=== PATIENT | female | born 1975 | race Two or more races ===

== ENCOUNTER → 2020-05-31 | Outpatient (CLI) | payer OTHER ==
--- NOTE | 2020-05-31 09:17 | RAD ---
EXAM: Abdomen sonogram. HISTORY: Periumbilical pain.. TECHNIQUE: Sonographic imaging of the abdomen was performed. COMPARISON: None. FINDINGS: There is a fat-containing periumbilical hernia at the site of palpable concern. The hernia defect measures 2.7 cm in maximum dimension during a Valsalva maneuver. IMPRESSION: Small fat-containing periumbilical hernia. Electronically signed by: Chante Desouza MD (05/31/2020 9:14 AM) [id number]
== END | disposition home or self-care (01) ==
LOC: US 06:35
PROVIDERS: ATTEND Family Medicine
DX: K42.9 Umbilical hernia without obstruction or gangrene (principal); R19.00 Intra-abdominal and pelvic swelling, mass and lump, unspecified site
CPT/HCPCS: 76705

== ENCOUNTER 2021-06-10 03:21 | Inpatient (IN) | payer SELFPAY ==
[~2021-06-10] VITALS: Ht 160 cm; Wt 88.4 kg
--- NOTE | 2021-06-10 03:52 | PHYS DOC ---
Past Medical History Past Medical History: Diabetes-Type II Additional Past Medical Histor: ARTHRITIS (KEIRA MCMAHON MD) Past Surgical History: No Surgical History (KEIRA MCMAHON MD) Smoking Status: Former Smoker (KEIRA MCMAHON MD) General Adult EDM: Chief Complaint: Periumbilical abdominal pain HPI: HPI: 46-year-old woman presents to the ER complaining of periumbilical abdominal pain over the past 3 days, patient endorses an aching cramping sensation that has come and gone but is now constant, nonradiating, associated with some nausea vo miting but no diarrhea, no fevers or chills, she has not have any prior surgical history or history of kidney stones, has a history of diabetes, no chest pain or shortness of breath, no urinary symptoms or blood in the stool (KEIRA MCMAHON MD) Review of Systems: Review of Systems: Constitutional: Denies fever or chills. [] Eyes: Denies change in visual acuity. [] HENT: Denies nasal congestion or sore throat. [] Respiratory: Denies cough or shortness of breath. [] Cardiovascular: Denies chest pain or edema. [] GI: + abdominal pain, nausea, vomiting, bloody stools or diarrhea. [] : Denies dysuria. [] Musculoskeletal: Denies back pain or joint pain. [] Integument: Denies rash. [] Neurologic: Denies headache, focal weakness or sensory changes. [] Endocrine: Denies polyuria or polydipsia. [] Lymphatic: Denies swollen glands. [] Psychiatric: Denies depression or anxiety. [] (KEIRA MCMAHON MD) Heart Score: C/O Chest Pain: No Risk Factors: Risk Factors: DM, Current or recent (<one month) smoker, HTN, HLP, family history of CAD, obesity. Risk Scores: Score 0 - 3: 2.5% MACE over next 6 weeks - Discharge Home Score 4 - 6: 20.3% MACE over next 6 weeks - Admit for Clinical Observation Score 7 - 10: 72.7% MACE over next 6 weeks - Early Invasive Strategies (KEIRA MCMAHON MD) C/O Chest Pain: N/A (DAVID DICK DO) Allergies: Allergies: Allergies Coded Allergies Type Severity Reaction Last Updated Verified No Known Drug Allergies 06/10/21 No (KEIRA MCMAHON MD) Physical Exam: PE: Gen-well appearing, no acute distress Head: Normocephalic/Atraumatic ENT: atraumatic, PERRLA, EOMI, oropharynx clear Neck: supple, full ROM/strength, no JVD, no nuchal rigidity Lungs: no distress, speaks in full sentences, Clear to auscultation bilaterally CV: reg rate, rhythm, no murmus/rubs/gallops, peripheral pulses equal in all ext remities Abdomen: soft and tender around the periumbilical region but no tenderness at McBurney's point, negative Fiore sign, o guarding/rebound tenderness, no rigidity, non distended, normoactive bowel sounds Musculoskeletal: full ROM/strength in all extremities, atraumatic, no swelling Back: full range of motion/strength Skin: intact, no rashes Lymph: no gross YURIDIA Neuro: alert and oriented x 4, CN 2-12 grossly intact, Motor strength is 5/5 in all extremities, no focal sensory deficits, no focal ataxia, ambulatory with steady gait Psych: normal mood/affect (KEIRA MCMAHON MD) Current Patient Data: Vital Signs: Vital Signs Date Time Temp Pulse Resp B/P (MAP) Pulse Ox O2 Delivery O2 Flow Rate FiO2 06/10/21 03:26 98.6 77 25 156/86 98 Room Air 98.6 (KEIRA MCMAHON MD) Labs: Laboratory Tests Test 06/10/21 03:54 06/10/21 04:45 White Blood Count 13.5 x10^3/uL Red Blood Count 4.76 x10^6/uL Hemoglobin 13.9 g/dL Hematocrit 40.8 % Mean Corpuscular Volume 86 fL Mean Corpuscular Hemoglobin 29 pg Mean Corpuscular Hemoglobin Concent 34 g/dL Red Cell Distribution Width 13.3 % Platelet Count 243 x10^3/uL Neutrophils (%) (Auto) 83 % Lymphocytes (%) (Auto) 13 % Monocytes (%) (Auto) 3 % Eosinophils (%) (Auto) 1 % Basophils (%) (Auto) 0 % Neutrophils # (Auto) 11.2 x10^3/uL Lymphocytes # (Auto) 1.7 x10^3/uL Monocytes # (Auto) 0.4 x10^3/uL Eosinophils # (Auto) 0.2 x10^3/uL Basophils # (Auto) 0.0 x10^3/uL Sodium Level 138 mmol/L Potassium Level 3.6 mmol/L Chloride Level 103 mmol/L Carbon Dioxide Level 29 mmol/L Anion Gap 6 Blood Urea Nitrogen 7 mg/dL Creatinine 0.6 mg/dL Estimated GFR (Cockcroft-Gault) 108.1 BUN/Creatinine Ratio 12 Glucose Level 159 mg/dL Calcium Level 8.7 mg/dL Total Bilirubin 0.5 mg/dL Aspartate Amino Transf (AST/SGOT) 18 U/L Alanine Aminotransferase (ALT/SGPT) 30 U/L Alkaline Phosphatase 59 U/L Total Protein 7.0 g/dL Albumin 3.4 g/dL Albumin/Globulin Ratio 0.9 Lipase 61 U/L Urine Collection Type Void Urine Color Yellow Urine Clarity Turbid Urine pH 8.0 Urine Specific [place] 1.025 Urine Protein 30 mg/dL Urine Glucose (UA) Negative mg/dL Urine Ketones (Stick) Negative mg/dL Urine Blood Negative Urine Nitrite Negative Urine Bilirubin Negative Urine Urobilinogen Dipstick 0.2 mg/dL Urine Leukocyte Esterase Trace Urine RBC 0 /HPF Urine WBC 1-4 /HPF Urine Squamous Epithelial Cells Many /LPF Urine Amorphous Sediment Present /HPF Urine Bacteria Moderate /HPF Urine Mucus Mod /LPF Urine Test Negative Current Medications Medications (Trade) Dose Ordered Sig/Jamal Route PRN Reason Start Time Stop Time Status Last Admin Dose Admin Morphine Sulfate (Morphine Sulfate) 4 mg 1X ONCE IVP 06/10/21 04:30 06/10/21 04:31 DC 06/10/21 04:08 Multi-Ingredient Mouthwash/Gargle (Gi Cocktail) 20 ml 1X ONCE SWSW 06/10/21 04:30 06/10/21 04:31 DC 06/10/21 04:20 Ondansetron HCl (Zofran) 8 mg 1X ONCE IM 06/10/21 04:30 06/10/21 04:31 Cancel Ondansetron HCl (Zofran) 4 mg STK-MED ONCE .ROUTE 06/10/21 04:11 06/10/21 04:12 DC Ondansetron HCl (Zofran) 8 mg 1X ONCE IV 06/10/21 04:30 06/10/21 04:31 DC 06/10/21 04:20 Iohexol (Omnipaque 300 Mg/ml) 75 ml 1X ONCE IV 06/10/21 05:00 06/10/21 05:01 DC 06/10/21 05:27 Info (CONTRAST GIVEN -- Rx MONITORING) 1 each PRN DAILY PRN MC SEE COMMENTS 06/10/21 04:45 06/12/21 04:44 Benzocaine (Hurricaine One) 1 spray 1X ONCE MM 06/10/21 07:15 06/10/21 07:16 DC Morphine Sulfate (Morphine Sulfate) 4 mg 1X ONCE IVP 06/10/21 07:30 06/10/21 07:31 UNV (DAVID DICK DO) EKG: EKG: [] Twelve-lead EKG was performed at 4:32 AM: Normal sinus rhythm, rate is 73, nonischemic appearing EKG with normal axis and intervals (KEIRA MCMAHON MD) Radiology/Procedures: Radiology/Procedures: [] (KEIRA MCMAHON MD) Radiology/Procedures: [facility] [address] [place], [place] [id number] IMAGING REPORT Signed PATIENT: HARRISON ESPANA MACCOUNT: [id number] : 1975 LOCATION: ER AGE: 46 SEX: F EXAM STATUS: REG ER ORD. PHYSICIAN: KEIRA MCMAHON MD REASON: Periumbilical abdominal pain;OMNI 300, 75ML PROCEDURE: CT ABD PELV W/ IV CONTRST ONLY PQRS Compliance Statement: One or more of the following individualized dose reduction techniques were utilized for this examination: 1. Automated exposure control 2. Adjustment of the mA and/or kV according to patient size 3. Use of iterative reconstruction technique CT ABDOMEN+PELVIS W Clinical Indication: Reason: Periumbilical abdominal pain; Comparison: None. Technique: Helical CT imaging of the abdomen and pelvis is performed after 75 cc of Omnipaque 300 IV contrast. Oral contrast not administered. Findings: Lung bases are clear. Cardiac size normal. There is moderate fatty infiltration of the liver. There is trace right subphrenic ascites. The gallbladder, spleen, pancreas, adrenal glands, abdominal aorta, and kidneys are normal. The gastric antrum is not well distended accentuating the wall thickness. No surrounding inflammation. There is a fat-containing umbilical hernia. There is right lower abdomen free fluid. The appendix is normal. There is mildly dilated mid small bowel that demonstrates feces sign. There is inflammation surrounding small bowel distal to the dilated bowel, for example image 60. These small bowel loops are mildly thickened with enhancement, coronal image 29. The urinary bladder is normal. There is mild pelvic free fluid. The urinary bladder is normal. There is grade 1 anterolisthesis of L4 on L5. No acute bone abnormality. IMPRESSION: 1. There is mid small bowel obstruction. At the point of transition in the right lower abdomen the small bowel is mildly thick-walled with hyperenhancement and there is surrounding induration suggesting focal enteritis causing obstru ction. There is moderate free fluid just inferior in the right lower abdomen. 2. Fatty infiltration of the liver. 3. Trace right subphrenic ascites. 4. Mild pelvic free fluid. Electronically signed by: Jesus Stevenson MD (06/10/2021 6:13 AM) [facility] DICTATED and SIGNED BY: JESUS STEVENSON MD DATE: 06/10/21 [id number] (DAVID DICK DO) Course & Med Decision Making: Course & Med Decision Making Pertinent Labs and Imaging studies reviewed. (See chart for details) [] 46-year-old woman presents to the ER complaining of periumbilical abdominal pain, the per differential diagnosis in this patient includes but not limited to GERD/gastritis, gastroenteritis, kidney stone, UTI, pyelonephritis, pancreatitis, gallstone, cholecystitis, appendicitis, unlikely AAA, SBO, ACS, PE, bowel obstruction, unlikely any acute gynecologic pathology, plan check urine, labs, EKG out of an abundance of caution, CT of the abdomen pelvis as well, in the meantime I will treat her with some pain medicine, will reevaluate and reexamine her once more data becomes available and determine the best course of action at that time (KEIRA MCMAHON MD) Course & Med Decision Making Patient is a 46-year-old female who present to ER due to abdominal pain with nausea vomiting. CT scan of the abdomen pelvis show mid small bowel obstruction. Patient will be admitted to hospital for further evaluation and treatment. Discussed with hospitalist on-call Dr. Alexy Steele who agreed to admit the patient. (DAVID DICK DOMynor Hughes Disclaimer: Dragjamie Disclaimer: This electronic medical record was generated, in whole or in part, using a voice recognition dictation system. (KEIRA MCMAHON MD) Departure Departure Impression: Primary Impression: Small bowel obstruction Additional Impression: Abdominal pain Disposition: ADMITTED INPATIENT Admitting Physician: MARVIN (Dr. Steele) (DAVID DICK DO) Condition: STABLE Referrals: NO PCP (PCP) KEIRA MCMAHON MD Jun 10, 2021 03:52 DAVID DICK DO Jun 10, 2021 07:27
[2021-06-10 04:00] LABS: BASO % 0 % (0-3); EOS # 0.2 x10^3/uL (0.0-0.7); EOS % 1 % (0-3); HEMATOCRIT 40.8 % (36.0-47.0); HEMOGLOBIN 13.9 g/dL (12.0-15.5); LYMPH # 1.7 x10^3/uL (1.0-4.8); LYMPH % 13 % (24-48); MEAN CORPUSCULAR HEMOGLOBIN 29 pg (25-35); MEAN CORPUSCULAR HGB CONC 34 g/dL (31-37); MEAN CORPUSCULAR VOLUME 86 fL (79-100); MONO # 0.4 x10^3/uL (0.0-1.1); MONO % 3 % (0-9); NEUT # 11.2 x10^3/uL (1.8-7.7); NEUT % 83 % (31-73); PLATELET COUNT 243 x10^3/uL (140-400); RED BLOOD COUNT 4.76 x10^6/uL (3.50-5.40); RED CELL DISTRIBUTION WIDTH 13.3 % (11.5-14.5); WHITE BLOOD COUNT 13.5 x10^3/uL (4.0-11.0)
[2021-06-10] MEDS ORDERED: ONDANSETRON PF 4 MG/2 ML VIAL. ONE (04:11)
[2021-06-10 04:12] LABS: CALCIUM 8.7 mg/dL (8.5-10.1); CREATININE 0.6 mg/dL (0.6-1.0); GFR 108.1; POTASSIUM 3.6 mmol/L (3.5-5.1)
[2021-06-10 04:18] LABS: ALBUMIN 3.4 g/dL (3.4-5.0); ALBUMIN/GLOBULIN RATIO 0.9 (1.0-1.7); TOTAL BILIRUBIN 0.5 mg/dL (0.2-1.0)
[2021-06-10] MEDS ORDERED: ONDANSETRON PF 4 MG/2 ML VIAL. IV ONE (04:30)
[2021-06-10] MEDS ORDERED: MORPHINE SULFATE 4 MG/ML INJ. IVP ONE ×2 (04:30→07:30)
[2021-06-10] MEDS ORDERED: LIDO:MAALOX 1:1 20 ML SINGLE DOSE. SWSW ONE (04:30)
[2021-06-10] MEDS ORDERED: ONDANSETRON PF 4 MG/2 ML VIAL. IM ONE (04:30)
[2021-06-10] MEDS ORDERED: CONTRAST GIVEN. MC PRN (04:45)
--- NOTE | 2021-06-10 04:48 | EKG ---
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
[2021-06-10] MEDS ORDERED: IOHEXOL 300 MG/ML 100ML VIAL. IV ONE (05:00)
[2021-06-10 05:02] LABS: BILIRUBIN,URINE NEGATIVE (NEG); CLARITY,URINE TURBID; COLOR,URINE YELLOW; NITRITE,URINE NEGATIVE (NEG); PROTEIN,URINE 30 mg/dL (NEG-TRACE); UROBILINOGEN,URINE 0.2 mg/dL (0.2 mg/dL)
[2021-06-10 05:14] LABS: AMORPHOUS SEDIMENT,UR PRESENT /HPF; BACTERIA,URINE MODERATE /HPF (0-FEW); RBC,URINE 0 /HPF (0-2)
[2021-06-10 05:15] LABS: U PREG PATIENT NEGATIVE (NEG)
--- NOTE | 2021-06-10 06:16 | RAD ---
PQRS Compliance Statement: One or more of the following individualized dose reduction techniques were utilized for this examinat ion: 1. Automated exposure control 2. Adjustment of the mA and/or kV according to patient size 3. Use of iterative reconstruction technique CT ABDOMEN+PELVIS W Clinical Indication: Reason: Periumbilical abdominal pain; Comparison: None. Technique: Helical CT imaging of the abdomen and pelvis is performed after 75 cc of Omnipaque 300 IV contrast. Oral contrast not administered. Findings: Lung bases are clear. Cardiac size normal. There is moderate fatty infiltration of the liver. There is trace right subphrenic ascites. The gallb ladder, spleen, pancreas, adrenal glands, abdominal aorta, and kidneys are normal. The gastric antrum is not well distended accentuating the wall thickness. No surrounding inflammation . There is a fat-containing umbilical hernia. There is right lower abdomen free fluid. The appendix i s normal. There is mildly dilated mid small bowel that demonstrates feces sign. There is inflammation surrounding small bowel distal to the dilated bowel, for example image 60. These small bowel loops a re mildly thickened with enhancement, coronal image 29. The urinary bladder is normal. There is mild pelvic free fluid. The urinary bladder is normal. There is grade 1 anterolisthesis of L4 on L5. No acute bone abnormality. IMPRESSION: 1. There is mid small bowel obstruction. At the point of transition in the right lower abdomen the s mall bowel is mildly thick-walled with hyperenhancement and there is surrounding induration suggestin g focal enteritis causing obstruction. There is moderate free fluid just inferior in the right lower abdomen. 2. Fatty infiltration of the liver. 3. Trace right subphrenic ascites. 4. Mild pelvic free fluid. Electronically signed by: Chapincito Stevenson MD (06/10/2021 6:13 AM) [facility]
[2021-06-10] MEDS ORDERED: BENZOCAINE ONE 20% MUCOSAL SPRAY. MM (07:15)
[2021-06-10] MEDS ORDERED: ONDANSETRON PF 4 MG/2 ML VIAL. IVP PRN ×2 (07:45→12:15)
[2021-06-10] MEDS: IV NORMAL SALINE 1000ML BAG 1,000 ML IV SCH ×4 (07:45→20:28)
[2021-06-10] MEDS ORDERED: MORPHINE SULFATE 4 MG/ML INJ. IVP PRN (07:45)
--- NOTE | 2021-06-10 08:22 | PDOC1 ---
History and Physical Date of Service: DOS: DATE: 06/10/21 TIME: 08:17 Chief Complaint: Chief Complain: Abdominal pain History of Present Illness: HPI: History obtained ED physician and chart review 46-year-old woman presents to the ER complaining of periumbilical abdominal pain over the past 3 days, patient endorses an aching cramping sensation that has come and gone but is now constant, nonradiating, associated with some nausea vomiting but no diarrhea, no fevers or chills, she has not have any prior surgical history or history of kidney stones, has a history of diabetes, no chest pain or shortness of breath, no urinary symptoms or blood in the stool Upon further questioning, Pt states after NGT placement she has some relief from her ABD pain, but has sore throat. Denies any ABD surgeries except fro C section x2. Past Medical/Surgical History: PMH/PSH: Past Medical History: Diabetes-Type II, ARTHRITIS Past Surgical History: No Surgical History Allergies: Allergies: Coded Allergies: No Known Drug Allergies (Unverified , 06/10/21) Family History: Family History: Reviewed with no relevant findings Social History: Social History: Smoking Status: Former Smoker Current Medications: Current Medications Current Medications Morphine Sulfate (Morphine Sulfate) 4 mg 1X ONCE IVP Last administered on 06/10/21at 04:08; Start 06/10/21 at 04:30; Stop 06/10/21 at 04:31; Status DC Multi-Ingredient Mouthwash/Gargle (Gi Cocktail) 20 ml 1X ONCE SWSW Last administered on 06/10/21at 04:20; Start 06/10/21 at 04:30; Stop 06/10/21 at 04:31; Status DC Ondansetron HCl (Zofran) 8 mg 1X ONCE IM ; Start 06/10/21 at 04:30; Stop 06/10/21 at 04:31; Status Cancel Ondansetron HCl (Zofran) 4 mg STK-MED ONCE .ROUTE ; Start 06/10/21 at 04:11; Stop 06/10/21 at 04:12; Status DC Ondansetron HCl (Zofran) 8 mg 1X ONCE IV Last administered on 06/10/21at 04:20; Start 06/10/21 at 04:30; Stop 06/10/21 at 04:31; Status DC Iohexol (Omnipaque 300 Mg/ml) 75 ml 1X ONCE IV Last administered on 06/10/21at 05:27; Start 06/10/21 at 05:00; Stop 06/10/21 at 05:01; Status DC Info (CONTRAST GIVEN -- Rx MONITORING) 1 each PRN DAILY PRN MC SEE COMMENTS; Start 06/10/21 at 04:45; Stop 06/12/21 at 04:44 Benzocaine (Hurricaine One) 1 spray 1X ONCE MM ; Start 06/10/21 at 07:15; Stop 06/10/21 at 07:16; Status DC Morphine Sulfate (Morphine Sulfate) 4 mg 1X ONCE IVP Last administered on 06/10/21at 07:30; Start 06/10/21 at 07:30; Stop 06/10/21 at 07:31; Status DC Ondansetron HCl (Zofran) 4 mg PRN Q8HRS PRN IVP NAUSEA/VOMITING; Start 06/10/21 at 07:45; Stop 06/11/21 at 07:44 Morphine Sulfate (Morphine Sulfate) 4 mg PRN Q2HR PRN IVP PAIN; Start 06/10/21 at 07:45; Stop 06/11/21 at 07:44 Sodium Chloride 1,000 ml @ 100 mls/hr Q10H IV ; Start 06/10/21 at 07:45; Stop 06/11/21 at 07:44 ROS: Review of Systems Review of System REVIEW OF SYSTEMS: GENERAL: Denies weakness SKIN: No bruising, hair changes or rashes. EYES: No blurred, double or loss of vision. NOSE AND THROAT: No history of nosebleeds, hoarseness or sore throat. HEART: No history of palpitations, chest pain or shortness of breath on exertion. LUNGS: Denies cough, hemoptysis, wheezing or shortness of breath. GASTROINTESTINAL: Denies changes in appetite, nausea, vomiting, diarrhea or constipation. GENITOURINARY: No history of frequency, urgency, hesitancy or nocturia. NEUROLOGIC: Denies history of numbness, tingling, or tremor. PSYCHIATRIC: No history of panic, anxiety or depression. ENDOCRINE: No history of heat or cold intolerance, polyuria or polydipsia. EXTREMITIES: Denies joint pain, pain on walking or stiffness. Physical Exam: Vital Signs: Vital Signs Date Time Temp Pulse Resp B/P (MAP) Pulse Ox O2 Delivery O2 Flow Rate FiO2 06/10/21 08:00 74 96 06/10/21 07:00 121/77 (92) 06/10/21 04:53 Room Air 06/10/21 04:31 17 06/10/21 03:26 98.6 98.6 Physcial Exam: General: Well developed, well nourished, no acute distress, well appearing. NGT in place HEENT: Pupils equally round and reactive to light, EOMI, no discharge, normal conjunctiva Neck: Supple, no nuchal rigidity, no JVD, trachea midline, no tenderness Cardiac: RRR, no murmurs, no gallops, no rubs Chest/Lungs: CTAB, no wheeze, no rhonchi, no crackles Abdomen: soft, non-distended, no guarding, no peritoneal signs,Diffuse tenderness. Normoactive BS. Back: No tenderness Extremities: no edema, pulses intact, non-tender,capillary refill <3 sec bilateral upper and lower extremities, Neuro: Alert and oriented x 4, no focal deficits, normal speech Labs: Labs: Laboratory Tests Test 06/10/21 03:54 06/10/21 04:45 White Blood Count 13.5 x10^3/uL (4.0-11.0) Red Blood Count 4.76 x10^6/uL (3.50-5.40) Hemoglobin 13.9 g/dL (12.0-15.5) Hematocrit 40.8 % (36.0-47.0) Mean Corpuscular Volume 86 fL (79-100) Mean Corpuscular Hemoglobin 29 pg (25-35) Mean Corpuscular Hemoglobin Concent 34 g/dL (31-37) Red Cell Distribution Width 13.3 % (11.5-14.5) Platelet Count 243 x10^3/uL (140-400) Neutrophils (%) (Auto) 83 % (31-73) Lymphocytes (%) (Auto) 13 % (24-48) Monocytes (%) (Auto) 3 % (0-9) Eosinophils (%) (Auto) 1 % (0-3) Basophils (%) (Auto) 0 % (0-3) Neutrophils # (Auto) 11.2 x10^3/uL (1.8-7.7) Lymphocytes # (Auto) 1.7 x10^3/uL (1.0-4.8) Monocytes # (Auto) 0.4 x10^3/uL (0.0-1.1) Eosinophils # (Auto) 0.2 x10^3/uL (0.0-0.7) Basophils # (Auto) 0.0 x10^3/uL (0.0-0.2) Sodium Level 138 mmol/L (136-145) Potassium Level 3.6 mmol/L (3.5-5.1) Chloride Level 103 mmol/L (98-107) Carbon Dioxide Level 29 mmol/L (21-32) Anion Gap 6 (6-14) Blood Urea Nitrogen 7 mg/dL (7-20) Creatinine 0.6 mg/dL (0.6-1.0) Estimated GFR (Cockcroft-Gault) 108.1 BUN/Creatinine Ratio 12 (6-20) Glucose Level 159 mg/dL (70-99) Calcium Level 8.7 mg/dL (8.5-10.1) Total Bilirubin 0.5 mg/dL (0.2-1.0) Aspartate Amino Transf (AST/SGOT) 18 U/L (15-37) Alanine Aminotransferase (ALT/SGPT) 30 U/L (14-59) Alkaline Phosphatase 59 U/L (46-116) Total Protein 7.0 g/dL (6.4-8.2) Albumin 3.4 g/dL (3.4-5.0) Albumin/Globulin Ratio 0.9 (1.0-1.7) Lipase 61 U/L (73-393) Urine Collection Type Void Urine Color Yellow Urine Clarity Turbid Urine pH 8.0 (<5.0-8.0) Urine Specific [place] 1.025 (1.000-1.030) Urine Protein 30 mg/dL (NEG-TRACE) Urine Glucose (UA) Negative mg/dL (NEG) Urine Ketones (Stick) Negative mg/dL (NEG) Urine Blood Negative (NEG) Urine Nitrite Negative (NEG) Urine Bilirubin Negative (NEG) Urine Urobilinogen Dipstick 0.2 mg/dL (0.2 mg/dL) Urine Leukocyte Esterase Trace (NEG) Urine RBC 0 /HPF (0-2) Urine WBC 1-4 /HPF (0-4) Urine Squamous Epithelial Cells Many /LPF Urine Amorphous Sediment Present /HPF Urine Bacteria Moderate /HPF (0-FEW) Urine Mucus Mod /LPF Urine Test Negative (NEG) Laboratory Tests Test 06/10/21 03:54 06/10/21 04:45 White Blood Count 13.5 x10^3/uL (4.0-11.0) Red Blood Count 4.76 x10^6/uL (3.50-5.40) Hemoglobin 13.9 g/dL (12.0-15.5) Hematocrit 40.8 % (36.0-47.0) Mean Corpuscular Volume 86 fL (79-100) Mean Corpuscular Hemoglobin 29 pg (25-35) Mean Corpuscular Hemoglobin Concent 34 g/dL (31-37) Red Cell Distribution Width 13.3 % (11.5-14.5) Platelet Count 243 x10^3/uL (140-400) Neutrophils (%) (Auto) 83 % (31-73) Lymphocytes (%) (Auto) 13 % (24-48) Monocytes (%) (Auto) 3 % (0-9) Eosinophils (%) (Auto) 1 % (0-3) Basophils (%) (Auto) 0 % (0-3) Neutrophils # (Auto) 11.2 x10^3/uL (1.8-7.7) Lymphocytes # (Auto) 1.7 x10^3/uL (1.0-4.8) Monocytes # (Auto) 0.4 x10^3/uL (0.0-1.1) Eosinophils # (Auto) 0.2 x10^3/uL (0.0-0.7) Basophils # (Auto) 0.0 x10^3/uL (0.0-0.2) Sodium Level 138 mmol/L (136-145) Potassium Level 3.6 mmol/L (3.5-5.1) Chloride Level 103 mmol/L (98-107) Carbon Dioxide Level 29 mmol/L (21-32) Anion Gap 6 (6-14) Blood Urea Nitrogen 7 mg/dL (7-20) Creatinine 0.6 mg/dL (0.6-1.0) Estimated GFR (Cockcroft-Gault) 108.1 BUN/Creatinine Ratio 12 (6-20) Glucose Level 159 mg/dL (70-99) Calcium Level 8.7 mg/dL (8.5-10.1) Total Bilirubin 0.5 mg/dL (0.2-1.0) Aspartate Amino Transf (AST/SGOT) 18 U/L (15-37) Alanine Aminotransferase (ALT/SGPT) 30 U/L (14-59) Alkaline Phosphatase 59 U/L (46-116) Total Protein 7.0 g/dL (6.4-8.2) Albumin 3.4 g/dL (3.4-5.0) Albumin/Globulin Ratio 0.9 (1.0-1.7) Lipase 61 U/L (73-393) Urine Collection Type Void Urine Color Yellow Urine Clarity Turbid Urine pH 8.0 (<5.0-8.0) Urine Specific [place] 1.025 (1.000-1.030) Urine Protein 30 mg/dL (NEG-TRACE) Urine Glucose (UA) Negative mg/dL (NEG) Urine Ketones (Stick) Negative mg/dL (NEG) Urine Blood Negative (NEG) Urine Nitrite Negative (NEG) Urine Bilirubin Negative (NEG) Urine Urobilinogen Dipstick 0.2 mg/dL (0.2 mg/dL) Urine Leukocyte Esterase Trace (NEG) Urine RBC 0 /HPF (0-2) Urine WBC 1-4 /HPF (0-4) Urine Squamous Epithelial Cells Many /LPF Urine Amorphous Sediment Present /HPF Urine Bacteria Moderate /HPF (0-FEW) Urine Mucus Mod /LPF Urine Test Negative (NEG) Images: Images PROCEDURE: CT ABD PELV W/ IV CONTRST ONLY IMPRESSION: 1. There is mid small bowel obstruction. At the point of transition in the right lower abdomen the small bowel is mildly thick-walled with hyperenhancement and there is surrounding induration suggesting focal enteritis causing obstruction. There is moderate free fluid just inferior in the right lower abdomen. 2. Fatty infiltration of the liver. 3. Trace right subphrenic ascites. 4. Mild pelvic free fluid. Assessment/Plan Assessment/Plan Acute abdominal pain due to small bowel obstruction Possible enteritis Hepatic steatosis Morbid obesity Type 2 diabetes mellitus, controlled Admit to hospitalist service for further management Surgery consult NGT to LIWS Serial ABD exams continue IVF Lovenox for DVT prophylaxis Protonix for GI prophylaxis NPO FULL code DPOA Uyen Gibson Justifications for Admission Other Justification AHSAN BROOKE MD Jun 10, 2021 08:22
--- NOTE | 2021-06-10 08:54 | PDOC2 ---
RACHID RASHEED FINANCE EFFECTIVENESS MANAGER 06/10/21 0854: CONSULT Date of Consult Date of Consult DATE: 06/10/21 TIME: 08:51 Reason for Consult Reason for Consult: sbo Referring Physician Referring Physician: ER Identification/Chief Complaint Chief Complaint abd pain Source Source: Chart review, Patient History of Present Illness Reason for Visit: Reports 3 days of mid to lower abdominal pain that worsened overnight. Associated nausea. Reports had a stool last night, no diarrhea. No fevers or chills Past Medical History Endocrine: Diabetes Past Surgical History Past Surgical History: Family History Family History: Other (noncontributory to current illness ) Social History Quit ALCOHOL: none Drugs: None Lives: with Family Current Problem List Problem List Problems Medical Problems: (1) Abdominal pain Status: Acute (2) Small bowel obstruction Status: Acute Current Medications Current Medications Current Medications Morphine Sulfate (Morphine Sulfate) 4 mg 1X ONCE IVP Last administered on 06/10/21at 04:08; Start 06/10/21 at 04:30; Stop 06/10/21 at 04:31; Status DC Multi-Ingredient Mouthwash/Gargle (Gi Cocktail) 20 ml 1X ONCE SWSW Last administered on 06/10/21at 04:20; Start 06/10/21 at 04:30; Stop 06/10/21 at 04:31; Status DC Ondansetron HCl (Zofran) 8 mg 1X ONCE IM ; Start 06/10/21 at 04:30; Stop 06/10/21 at 04:31; Status Cancel Ondansetron HCl (Zofran) 4 mg STK-MED ONCE .ROUTE ; Start 06/10/21 at 04:11; Stop 06/10/21 at 04:12; Status DC Ondansetron HCl (Zofran) 8 mg 1X ONCE IV Last administered on 06/10/21at 04:20; Start 06/10/21 at 04:30; Stop 06/10/21 at 04:31; Status DC Iohexol (Omnipaque 300 Mg/ml) 75 ml 1X ONCE IV Last administered on 06/10/21at 05:27; Start 06/10/21 at 05:00; Stop 06/10/21 at 05:01; Status DC Info (CONTRAST GIVEN -- Rx MONITORING) 1 each PRN DAILY PRN MC SEE COMMENTS; Start 06/10/21 at 04:45; Stop 06/12/21 at 04:44 Benzocaine (Hurricaine One) 1 spray 1X ONCE MM ; Start 06/10/21 at 07:15; Stop 06/10/21 at 07:16; Status DC Morphine Sulfate (Morphine Sulfate) 4 mg 1X ONCE IVP Last administered on 06/10/21at 07:30; Start 06/10/21 at 07:30; Stop 06/10/21 at 07:31; Status DC Ondansetron HCl (Zofran) 4 mg PRN Q8HRS PRN IVP NAUSEA/VOMITING; Start 06/10/21 at 07:45; Stop 06/11/21 at 07:44 Morphine Sulfate (Morphine Sulfate) 4 mg PRN Q2HR PRN IVP PAIN; Start 06/10/21 at 07:45; Stop 06/11/21 at 07:44 Sodium Chloride 1,000 ml @ 100 mls/hr Q10H IV ; Start 06/10/21 at 07:45; Stop 06/11/21 at 07:44 Allergies Allergies: Coded Allergies: No Known Drug Allergies (Unverified , 06/10/21) ROS General: YES: Fatigue; No: Chills PSYCHOLOGICAL ROS: No: Anxiety, Depression Eyes: No Blurry vision, No Double vision HEENT: No: Heacaches, Sore Throat Hematological and Lymphatic: No: Bleeding Problems, Blood Clots Respiratory: No: Cough, Shortness of breath Cardiovascular: No Chest Pain, No Palpitations Gastrointestinal: Yes Other (see hpi) Genitourinary: No Dysuria, No Retention Musculoskeletal: No Joint Pain, No Muscle Pain Neurological: No Impaired Coord/balance, No Numbness/Tingling Skin: No Pruritus, No Rash Physical Exam General: Alert, Oriented X3, Cooperative HEENT: Atraumatic, PERRLA Lungs: Clear to auscultation, Normal air movement Heart: Regular rate, Normal S1, Normal S2 Abdomen: Soft, Other (ND, ttp lower abdomen) Extremities: No clubbing, No cyanosis Skin: No rashes, No breakdown Neuro: Normal gait, Normal speech Psych/Mental Status: Mental status NL, Mood NL MUSCULOSKELETAL: No deformity, No swelling Vitals VITALS Vital Signs Date Time Temp Pulse Resp B/P (MAP) Pulse Ox O2 Delivery O2 Flow Rate FiO2 06/10/21 08:00 74 96 8/27/21 07:00 121/77 (92) 06/10/21 04:53 Room Air 06/10/21 04:31 17 06/10/21 03:26 98.6 98.6 Labs Labs Laboratory Tests Test 06/10/21 03:54 06/10/21 04:45 White Blood Count 13.5 x10^3/uL (4.0-11.0) Red Blood Count 4.76 x10^6/uL (3.50-5.40) Hemoglobin 13.9 g/dL (12.0-15.5) Hematocrit 40.8 % (36.0-47.0) Mean Corpuscular Volume 86 fL (79-100) Mean Corpuscular Hemoglobin 29 pg (25-35) Mean Corpuscular Hemoglobin Concent 34 g/dL (31-37) Red Cell Distribution Width 13.3 % (11.5-14.5) Platelet Count 243 x10^3/uL (140-400) Neutrophils (%) (Auto) 83 % (31-73) Lymphocytes (%) (Auto) 13 % (24-48) Monocytes (%) (Auto) 3 % (0-9) Eosinophils (%) (Auto) 1 % (0-3) Basophils (%) (Auto) 0 % (0-3) Neutrophils # (Auto) 11.2 x10^3/uL (1.8-7.7) Lymphocytes # (Auto) 1.7 x10^3/uL (1.0-4.8) Monocytes # (Auto) 0.4 x10^3/uL (0.0-1.1) Eosinophils # (Auto) 0.2 x10^3/uL (0.0-0.7) Basophils # (Auto) 0.0 x10^3/uL (0.0-0.2) Sodium Level 138 mmol/L (136-145) Potassium Level 3.6 mmol/L (3.5-5.1) Chloride Level 103 mmol/L (98-107) Carbon Dioxide Level 29 mmol/L (21-32) Anion Gap 6 (6-14) Blood Urea Nitrogen 7 mg/dL (7-20) Creatinine 0.6 mg/dL (0.6-1.0) Estimated GFR (Cockcroft-Gault) 108.1 BUN/Creatinine Ratio 12 (6-20) Glucose Level 159 mg/dL (70-99) Calcium Level 8.7 mg/dL (8.5-10.1) Total Bilirubin 0.5 mg/dL (0.2-1.0) Aspartate Amino Transf (AST/SGOT) 18 U/L (15-37) Alanine Aminotransferase (ALT/SGPT) 30 U/L (14-59) Alkaline Phosphatase 59 U/L (46-116) Total Protein 7.0 g/dL (6.4-8.2) Albumin 3.4 g/dL (3.4-5.0) Albumin/Globulin Ratio 0.9 (1.0-1.7) Lipase 61 U/L (73-393) Urine Collection Type Void Urine Color Yellow Urine Clarity Turbid Urine pH 8.0 (<5.0-8.0) Urine Specific [place] 1.025 (1.000-1.030) Urine Protein 30 mg/dL (NEG-TRACE) Urine Glucose (UA) Negative mg/dL (NEG) Urine Ketones (Stick) Negative mg/dL (NEG) Urine Blood Negative (NEG) Urine Nitrite Negative (NEG) Urine Bilirubin Negative (NEG) Urine Urobilinogen Dipstick 0.2 mg/dL (0.2 mg/dL) Urine Leukocyte Esterase Trace (NEG) Urine RBC 0 /HPF (0-2) Urine WBC 1-4 /HPF (0-4) Urine Squamous Epithelial Cells Many /LPF Urine Amorphous Sediment Present /HPF Urine Bacteria Moderate /HPF (0-FEW) Urine Mucus Mod /LPF Urine Test Negative (NEG) Laboratory Tests Test 06/10/21 03:54 06/10/21 04:45 White Blood Count 13.5 x10^3/uL (4.0-11.0) Red Blood Count 4.76 x10^6/uL (3.50-5.40) Hemoglobin 13.9 g/dL (12.0-15.5) Hematocrit 40.8 % (36.0-47.0) Mean Corpuscular Volume 86 fL (79-100) Mean Corpuscular Hemoglobin 29 pg (25-35) Mean Corpuscular Hemoglobin Concent 34 g/dL (31-37) Red Cell Distribution Width 13.3 % (11.5-14.5) Platelet Count 243 x10^3/uL (140-400) Neutrophils (%) (Auto) 83 % (31-73) Lymphocytes (%) (Auto) 13 % (24-48) Monocytes (%) (Auto) 3 % (0-9) Eosinophils (%) (Auto) 1 % (0-3) Basophils (%) (Auto) 0 % (0-3) Neutrophils # (Auto) 11.2 x10^3/uL (1.8-7.7) Lymphocytes # (Auto) 1.7 x10^3/uL (1.0-4.8) Monocytes # (Auto) 0.4 x10^3/uL (0.0-1.1) Eosinophils # (Auto) 0.2 x10^3/uL (0.0-0.7) Basophils # (Auto) 0.0 x10^3/uL (0.0-0.2) Sodium Level 138 mmol/L (136-145) Potassium Level 3.6 mmol/L (3.5-5.1) Chloride Level 103 mmol/L (98-107) Carbon Dioxide Level 29 mmol/L (21-32) Anion Gap 6 (6-14) Blood Urea Nitrogen 7 mg/dL (7-20) Creatinine 0.6 mg/dL (0.6-1.0) Estimated GFR (Cockcroft-Gault) 108.1 BUN/Creatinine Ratio 12 (6-20) Glucose Level 159 mg/dL (70-99) Calcium Level 8.7 mg/dL (8.5-10.1) Total Bilirubin 0.5 mg/dL (0.2-1.0) Aspartate Amino Transf (AST/SGOT) 18 U/L (15-37) Alanine Aminotransferase (ALT/SGPT) 30 U/L (14-59) Alkaline Phosphatase 59 U/L (46-116) Total Protein 7.0 g/dL (6.4-8.2) Albumin 3.4 g/dL (3.4-5.0) Albumin/Globulin Ratio 0.9 (1.0-1.7) Lipase 61 U/L (73-393) Urine Collection Type Void Urine Color Yellow Urine Clarity Turbid Urine pH 8.0 (<5.0-8.0) Urine Specific [place] 1.025 (1.000-1.030) Urine Protein 30 mg/dL (NEG-TRACE) Urine Glucose (UA) Negative mg/dL (NEG) Urine Ketones (Stick) Negative mg/dL (NEG) Urine Blood Negative (NEG) Urine Nitrite Negative (NEG) Urine Bilirubin Negative (NEG) Urine Urobilinogen Dipstick 0.2 mg/dL (0.2 mg/dL) Urine Leukocyte Esterase Trace (NEG) Urine RBC 0 /HPF (0-2) Urine WBC 1-4 /HPF (0-4) Urine Squamous Epithelial Cells Many /LPF Urine Amorphous Sediment Present /HPF Urine Bacteria Moderate /HPF (0-FEW) Urine Mucus Mod /LPF Urine Test Negative (NEG) Assessment/Plan Assessment/Plan SBO vs ileus, enteritis on CT bowel rest, hydration repeat xr in AM abnormal UA-as per IPC GRETTA ORTEGA MD 06/10/21 1226: CONSULT Assessment/Plan Assessment/Plan Patient seen and examined by me currently resting in bed seems what uncomfortable NG tube in place with clear output abdomen is soft mildly distended hypoactive bowel sounds. Agree with Singer assessment and plan RACHID RASHEED APRN Jun 10, 2021 08:54 GRETTA ORTEGA MD Jun 10, 2021 12:26
--- NOTE | 2021-06-10 09:31 | RAD ---
EXAM: Abdomen, single view. HISTORY: Nasogastric tube placement. COMPARISON: CT obtained on the same date. FINDINGS: A frontal view of the abdomen is obtained. There is a nasogastric tube within the stomach. There are nonspecific air-filled loops of bowel within the abdomen. IMPRESSION: 1. Nasogastric tube within the stomach. 2. Nonspecific air-filled bowel within the abdomen. This is better characterized on the CT performed on the same date. Electronically signed by: Chante Desouza MD (06/10/2021 9:28 AM) [id number]
[2021-06-10 09:52] VITALS: BP 126/76
[2021-06-10 11:00] VITALS: BP 130/77
[2021-06-10] MEDS ORDERED: ACETAMINOPHEN 325 MG TABLET. PO PRN (12:15)
[2021-06-10] MEDS ORDERED: SENNOSIDES 8.6 MG TABLET PO PRN (12:15)
[2021-06-10] MEDS ORDERED: DOCUSATE SODIUM 100 MG CAPSULE. PO PRN (12:15)
[2021-06-10] MEDS ORDERED: PROCHLORPERAZINE 10 MG/2 ML VIAL. IV PRN (12:15)
[2021-06-10] MEDS ORDERED: DEXTROSE 50% 25 GM / 50ML DISP.SYRIN. IV PRN (12:15)
[2021-06-10] MEDS ORDERED: MORPHINE SULFATE 2 MG/ML INJ. IV PRN (12:15)
[2021-06-10] MEDS: ENOXAPARIN 40 MG/0.4 ML SYRINGE. SQ SCH (14:00)
[2021-06-10 15:00] VITALS: BP 118/70
[2021-06-10 19:50] VITALS: BP 132/79
[2021-06-10 23:42] VITALS: BP 134/74
[2021-06-11] MEDS: MORPHINE SULFATE 2 MG/ML INJ. IVP PRN ×2 (03:12→11:01)
[2021-06-11] MEDS: IV NORMAL SALINE 1000ML BAG 1,000 ML IV SCH ×4 (03:13→20:48)
[2021-06-11 03:39] VITALS: BP 158/82
[2021-06-11 06:36] LABS: BASO % 0 % (0-3); EOS # 0.2 x10^3/uL (0.0-0.7); EOS % 2 % (0-3); HEMATOCRIT 39.1 % (36.0-47.0); HEMOGLOBIN 13.3 g/dL (12.0-15.5); LYMPH # 2.5 x10^3/uL (1.0-4.8); LYMPH % 24 % (24-48); MEAN CORPUSCULAR HEMOGLOBIN 30 pg (25-35); MEAN CORPUSCULAR HGB CONC 34 g/dL (31-37); MEAN CORPUSCULAR VOLUME 87 fL (79-100); MONO # 0.6 x10^3/uL (0.0-1.1); MONO % 6 % (0-9); NEUT # 7.3 x10^3/uL (1.8-7.7); NEUT % 68 % (31-73); PLATELET COUNT 223 x10^3/uL (140-400); RED CELL DISTRIBUTION WIDTH 13.2 % (11.5-14.5); WHITE BLOOD COUNT 10.6 x10^3/uL (4.0-11.0)
[2021-06-11 06:48] VITALS: BP 133/76
[2021-06-11 06:49] LABS: CALCIUM 8.3 mg/dL (8.5-10.1); CREATININE 0.5 mg/dL (0.6-1.0); GFR 133.4; MAGNESIUM 2.2 mg/dL (1.8-2.4); PHOSPHORUS 2.5 mg/dL (2.6-4.7); POTASSIUM 3.2 mmol/L (3.5-5.1)
--- NOTE | 2021-06-11 08:18 | RAD ---
EXAM: ABDOMEN 2 VIEWS WITH PA CHEST History: Small bowel obstruction TECHNIQUE: An upright view the chest and upright and supine views of the abdomen COMPARISON: 06/10/2021. FINDINGS: The cardiomediastinal silhouette grossly appears unremarkable. Minimal bilateral lung atelectasis or infiltrate. Feeding tube is identified in stomach. Feces and gas identified in the colon. Nonspecific bowel gas pattern. IMPRESSION: 1. Nonspecific bowel gas pattern. 2. Minimal bilateral lung atelectasis or infiltrate. Electronically signed by: Maximino Kumar MD (06/11/2021 8:16 AM) [facility]
[2021-06-11 11:00] VITALS: BP 143/88
--- NOTE | 2021-06-11 12:28 | PDOC ---
[employer] PROGRESS NOTE Date of Service DOS: DATE: 06/11/21 TIME: 12:14 Chief Complaint Chief Complaint Abdominal pain Diabetes Arthritis History of Present Illness History of Present Illness HPI: 46-year-old woman presents to the ER complaining of periumbilical abdominal pain over the past 3 days, patient endorses an aching cramping sensation that has come and gone but is now constant, nonradiating, associated with some nausea vomiting but no diarrhea, no fevers or chills, she has not have any prior surgical history or history of kidney stones, has a history of diabetes, no chest pain or shortness of breath, no urinary symptoms or blood in the stool. Upon further questioning, Pt states after NGT placement she has some relief from her ABD pain, but has sore throat. Denies any ABD surgeries except fro C section x2. 06/11/2021: Patient seen and examined. She is awake and has a NG tube. She reports she is doing well. Discussed with RN. Chart reviewed. Vitals/I&O Vitals/I&O: Vital Signs Date Time Temp Pulse Resp B/P (MAP) Pulse Ox O2 Delivery O2 Flow Rate FiO2 06/11/21 11:31 18 Room Air 06/11/21 11:00 98.2 66 143/88 (106) 94 98.2 I & O 06/10/21 06/10/21 06/11/21 15:00 23:00 07:00 Intake Total 0 ml 0 ml Balance 0 ml 0 ml Physical Exam General: Alert, Oriented X3, Cooperative Heart: Regular rate, Normal S1, Normal S2 Abdomen: Soft, Other (ND, ttp lower abdomen) Extremities: No clubbing, No cyanosis Skin: No rashes, No breakdown Labs Labs: Laboratory Tests Test 06/11/21 04:35 White Blood Count 10.6 x10^3/uL (4.0-11.0) Red Blood Count 4.50 x10^6/uL (3.50-5.40) Hemoglobin 13.3 g/dL (12.0-15.5) Hematocrit 39.1 % (36.0-47.0) Mean Corpuscular Volume 87 fL (79-100) Mean Corpuscular Hemoglobin 30 pg (25-35) Mean Corpuscular Hemoglobin Concent 34 g/dL (31-37) Red Cell Distribution Width 13.2 % (11.5-14.5) Platelet Count 223 x10^3/uL (140-400) Neutrophils (%) (Auto) 68 % (31-73) Lymphocytes (%) (Auto) 24 % (24-48) Monocytes (%) (Auto) 6 % (0-9) Eosinophils (%) (Auto) 2 % (0-3) Basophils (%) (Auto) 0 % (0-3) Neutrophils # (Auto) 7.3 x10^3/uL (1.8-7.7) Lymphocytes # (Auto) 2.5 x10^3/uL (1.0-4.8) Monocytes # (Auto) 0.6 x10^3/uL (0.0-1.1) Eosinophils # (Auto) 0.2 x10^3/uL (0.0-0.7) Basophils # (Auto) 0.0 x10^3/uL (0.0-0.2) Sodium Level 142 mmol/L (136-145) Potassium Level 3.2 mmol/L (3.5-5.1) Chloride Level 105 mmol/L (98-107) Carbon Dioxide Level 31 mmol/L (21-32) Anion Gap 6 (6-14) Blood Urea Nitrogen 5 mg/dL (7-20) Creatinine 0.5 mg/dL (0.6-1.0) Estimated GFR (Cockcroft-Gault) 133.4 Glucose Level 102 mg/dL (70-99) Calcium Level 8.3 mg/dL (8.5-10.1) Phosphorus Level 2.5 mg/dL (2.6-4.7) Magnesium Level 2.2 mg/dL (1.8-2.4) Review of Systems Review of Systems: Lungs: No cough or shortness of breath. Heart: No chest pain or palpitations. Assessment and Plan Assessmemt and Plan Problems Medical Problems: (1) Abdominal pain Status: Acute (2) Small bowel obstruction Status: Acute Abdominal pain Diabetes Arthritis Plan: 1) Continue NG suction 2) Start Levaquin for UTI today (06/11) 3) Start IV potassium to hypokalemia (3.2 on 06/11) 4) Trend KUBs 5) NPO 6) DVT prophylaxis 7) Appreciate general surgery consultation Comment Review of Relevant I have reviewed the following items brenda (where applicable) has been applied. Medications: Current Medications Medications (Trade) Dose Ordered Sig/Jamal Route PRN Reason Start Time Stop Time Status Last Admin Dose Admin Sodium Chloride 1,000 ml @ 100 mls/hr Q10H IV 06/10/21 12:15 06/11/21 10:03 Enoxaparin Sodium (Lovenox 40mg Syringe) 40 mg Q24H SQ 06/10/21 14:00 06/10/21 14:00 Morphine Sulfate (Morphine Sulfate) 2 mg PRN Q2HR PRN IVP SEVERE PAIN 7-10 06/10/21 12:15 06/11/21 12:14 06/11/21 11:01 Justifications for Admission Other Justification SBO GRAHAM TRIPATHI III DO Jun 11, 2021 12:28
--- NOTE | 2021-06-11 14:52 | PDOC ---
SURGICAL PROGRESS NOTE DATE: 06/11/21 TIME: 14:51 Subjective Pt without c/o, no N/V with NGT clamped, passing flatus Vital Signs Vital Signs Date Time Temp Pulse Resp B/P (MAP) Pulse Ox O2 Delivery O2 Flow Rate FiO2 06/11/21 11:31 18 Room Air 06/11/21 11:00 98.2 66 143/88 (106) 94 98.2 I&O Intake and Output 06/11/21 07:00 Intake Total 0 ml Balance 0 ml Intake Oral 0 ml # Voids 2 # Bowel Movements 1 General: Alert, Oriented X3, Cooperative, No acute distress Abdomen: Soft, No tenderness Labs Laboratory Tests Test 06/10/21 03:54 06/10/21 04:45 06/10/21 08:04 06/11/21 04:35 White Blood Count 13.5 x10^3/uL (4.0-11.0) 10.6 x10^3/uL (4.0-11.0) Red Blood Count 4.76 x10^6/uL (3.50-5.40) 4.50 x10^6/uL (3.50-5.40) Hemoglobin 13.9 g/dL (12.0-15.5) 13.3 g/dL (12.0-15.5) Hematocrit 40.8 % (36.0-47.0) 39.1 % (36.0-47.0) Mean Corpuscular Volume 86 fL (79-100) 87 fL (79-100) Mean Corpuscular Hemoglobin 29 pg (25-35) 30 pg (25-35) Mean Corpuscular Hemoglobin Concent 34 g/dL (31-37) 34 g/dL (31-37) Red Cell Distribution Width 13.3 % (11.5-14.5) 13.2 % (11.5-14.5) Platelet Count 243 x10^3/uL (140-400) 223 x10^3/uL (140-400) Neutrophils (%) (Auto) 83 % (31-73) 68 % (31-73) Lymphocytes (%) (Auto) 13 % (24-48) 24 % (24-48) Monocytes (%) (Auto) 3 % (0-9) 6 % (0-9) Eosinophils (%) (Auto) 1 % (0-3) 2 % (0-3) Basophils (%) (Auto) 0 % (0-3) 0 % (0-3) Neutrophils # (Auto) 11.2 x10^3/uL (1.8-7.7) 7.3 x10^3/uL (1.8-7.7) Lymphocytes # (Auto) 1.7 x10^3/uL (1.0-4.8) 2.5 x10^3/uL (1.0-4.8) Monocytes # (Auto) 0.4 x10^3/uL (0.0-1.1) 0.6 x10^3/uL (0.0-1.1) Eosinophils # (Auto) 0.2 x10^3/uL (0.0-0.7) 0.2 x10^3/uL (0.0-0.7) Basophils # (Auto) 0.0 x10^3/uL (0.0-0.2) 0.0 x10^3/uL (0.0-0.2) Sodium Level 138 mmol/L (136-145) 142 mmol/L (136-145) Potassium Level 3.6 mmol/L (3.5-5.1) 3.2 mmol/L (3.5-5.1) Chloride Level 103 mmol/L (98-107) 105 mmol/L (98-107) Carbon Dioxide Level 29 mmol/L (21-32) 31 mmol/L (21-32) Anion Gap 6 (6-14) 6 (6-14) Blood Urea Nitrogen 7 mg/dL (7-20) 5 mg/dL (7-20) Creatinine 0.6 mg/dL (0.6-1.0) 0.5 mg/dL (0.6-1.0) Estimated GFR (Cockcroft-Gault) 108.1 133.4 BUN/Creatinine Ratio 12 (6-20) Glucose Level 159 mg/dL (70-99) 102 mg/dL (70-99) Calcium Level 8.7 mg/dL (8.5-10.1) 8.3 mg/dL (8.5-10.1) Total Bilirubin 0.5 mg/dL (0.2-1.0) Aspartate Amino Transf (AST/SGOT) 18 U/L (15-37) Alanine Aminotransferase (ALT/SGPT) 30 U/L (14-59) Alkaline Phosphatase 59 U/L (46-116) Total Protein 7.0 g/dL (6.4-8.2) Albumin 3.4 g/dL (3.4-5.0) Albumin/Globulin Ratio 0.9 (1.0-1.7) Lipase 61 U/L (73-393) Urine Collection Type Void Urine Color Yellow Urine Clarity Turbid Urine pH 8.0 (<5.0-8.0) Urine Specific [place] 1.025 (1.000-1.030) Urine Protein 30 mg/dL (NEG-TRACE) Urine Glucose (UA) Negative mg/dL (NEG) Urine Ketones (Stick) Negative mg/dL (NEG) Urine Blood Negative (NEG) Urine Nitrite Negative (NEG) Urine Bilirubin Negative (NEG) Urine Urobilinogen Dipstick 0.2 mg/dL (0.2 mg/dL) Urine Leukocyte Esterase Trace (NEG) Urine RBC 0 /HPF (0-2) Urine WBC 1-4 /HPF (0-4) Urine Squamous Epithelial Cells Many /LPF Urine Amorphous Sediment Present /HPF Urine Bacteria Moderate /HPF (0-FEW) Urine Mucus Mod /LPF Urine Test Negative (NEG) SARS-CoV-2 RNA (MANDO) Negative (Negative) SARS-CoV-2 Antigen (Rapid) Negative (NEGATIVE) Phosphorus Level 2.5 mg/dL (2.6-4.7) Magnesium Level 2.2 mg/dL (1.8-2.4) Laboratory Tests Test 06/11/21 04:35 White Blood Count 10.6 x10^3/uL (4.0-11.0) Red Blood Count 4.50 x10^6/uL (3.50-5.40) Hemoglobin 13.3 g/dL (12.0-15.5) Hematocrit 39.1 % (36.0-47.0) Mean Corpuscular Volume 87 fL (79-100) Mean Corpuscular Hemoglobin 30 pg (25-35) Mean Corpuscular Hemoglobin Concent 34 g/dL (31-37) Red Cell Distribution Width 13.2 % (11.5-14.5) Platelet Count 223 x10^3/uL (140-400) Neutrophils (%) (Auto) 68 % (31-73) Lymphocytes (%) (Auto) 24 % (24-48) Monocytes (%) (Auto) 6 % (0-9) Eosinophils (%) (Auto) 2 % (0-3) Basophils (%) (Auto) 0 % (0-3) Neutrophils # (Auto) 7.3 x10^3/uL (1.8-7.7) Lymphocytes # (Auto) 2.5 x10^3/uL (1.0-4.8) Monocytes # (Auto) 0.6 x10^3/uL (0.0-1.1) Eosinophils # (Auto) 0.2 x10^3/uL (0.0-0.7) Basophils # (Auto) 0.0 x10^3/uL (0.0-0.2) Sodium Level 142 mmol/L (136-145) Potassium Level 3.2 mmol/L (3.5-5.1) Chloride Level 105 mmol/L (98-107) Carbon Dioxide Level 31 mmol/L (21-32) Anion Gap 6 (6-14) Blood Urea Nitrogen 5 mg/dL (7-20) Creatinine 0.5 mg/dL (0.6-1.0) Estimated GFR (Cockcroft-Gault) 133.4 Glucose Level 102 mg/dL (70-99) Calcium Level 8.3 mg/dL (8.5-10.1) Phosphorus Level 2.5 mg/dL (2.6-4.7) Magnesium Level 2.2 mg/dL (1.8-2.4) Problem List Problems Medical Problems: (1) Abdominal pain Status: Acute (2) Small bowel obstruction Status: Acute Assessment/Plan appears improved will d/c NGT and start clears Justicifation of Admission Dx: Justifications for Admission: Justification of Admission Dx: N/A ARIELLE HARMAN MD Jun 11, 2021 14:52
[2021-06-11 15:19] VITALS: BP 128/74
[2021-06-11] MEDS: POTASSIUM CHLORIDE 10MEQ 100 ML IV SCH ×4 (16:00→22:16)
[2021-06-11] MEDS: ENOXAPARIN 40 MG/0.4 ML SYRINGE. SQ SCH (17:09)
--- NOTE | 2021-06-11 18:50 | NUR ---
NG tube was removed today per doctors orders. Pt tolerated procedure well. Pt tolerating clear liquids without difficulty.
[2021-06-11 19:54] VITALS: BP 123/71
[2021-06-11 23:17] VITALS: BP 120/62
[2021-06-12 03:14] VITALS: BP 119/58
[2021-06-12 07:01] VITALS: BP 113/68
[2021-06-12 07:08] LABS: BASO % 0 % (0-3); EOS # 0.3 x10^3/uL (0.0-0.7); EOS % 3 % (0-3); HEMATOCRIT 40.3 % (36.0-47.0); HEMOGLOBIN 13.5 g/dL (12.0-15.5); LYMPH # 3.1 x10^3/uL (1.0-4.8); LYMPH % 36 % (24-48); MEAN CORPUSCULAR HEMOGLOBIN 29 pg (25-35); MEAN CORPUSCULAR HGB CONC 34 g/dL (31-37); MEAN CORPUSCULAR VOLUME 87 fL (79-100); MONO # 0.5 x10^3/uL (0.0-1.1); MONO % 6 % (0-9); NEUT # 4.6 x10^3/uL (1.8-7.7); NEUT % 55 % (31-73); PLATELET COUNT 235 x10^3/uL (140-400); RED BLOOD COUNT 4.64 x10^6/uL (3.50-5.40); RED CELL DISTRIBUTION WIDTH 13.6 % (11.5-14.5); WHITE BLOOD COUNT 8.5 x10^3/uL (4.0-11.0)
[2021-06-12 07:13] LABS: CALCIUM 8.7 mg/dL (8.5-10.1); CREATININE 0.6 mg/dL (0.6-1.0); GFR 108.1; MAGNESIUM 2.2 mg/dL (1.8-2.4); POTASSIUM 3.7 mmol/L (3.5-5.1)
[2021-06-12 11:00] VITALS: BP 135/79
--- NOTE | 2021-06-12 12:44 | PDOC ---
[employer] PROGRESS NOTE Date of Service DOS: DATE: 06/12/21 TIME: 12:30 Chief Complaint Chief Complaint CC: Abdominal pain Diabetes, type 2 Arthritis History of Present Illness History of Present Illness HPI: 46-year-old woman presents to the ER complaining of periumbilical abdominal pain over the past 3 days, patient endorses an aching cramping sensation that has come and gone but is now constant, nonradiating, associated with some nausea vomiting but no diarrhea, no fevers or chills, she has not have any prior surgical history or history of kidney stones, has a history of diabetes, no chest pain or shortness of breath, no urinary symptoms or blood in the stool. Upon further questioning, Pt states after NGT placement she has some relief from her ABD pain, but has sore throat. Denies any ABD surgeries except fro C section x2. 06/11/2021: Patient seen and examined. She is awake and has a NG tube. She reports she is doing well. Discussed with RN. Chart reviewed. 06/12/2021: Patient seen and examined. Awake and alert with NAD. She reports that she is tired but feeling well overall. NG tube has been removed. Discussed with RN. Chart reviewed. Vitals/I&O Vitals/I&O: Vital Signs Date Time Temp Pulse Resp B/P (MAP) Pulse Ox O2 Delivery O2 Flow Rate FiO2 06/12/21 11:00 98.0 66 16 135/79 (97) 95 Room Air 98.0 I & O 06/11/21 06/11/21 06/12/21 15:00 23:00 07:00 Intake Total 480 ml 360 ml Output Total 550 ml 900 ml Balance -70 ml -540 ml Physical Exam General: Alert, Oriented X3, Cooperative, No acute distress Heart: Regular rate, Normal S1, Normal S2 Abdomen: Soft, No tenderness Extremities: No clubbing, No cyanosis Skin: No rashes, No breakdown Labs Labs: Laboratory Tests Test 06/12/21 06:30 White Blood Count 8.5 x10^3/uL (4.0-11.0) Red Blood Count 4.64 x10^6/uL (3.50-5.40) Hemoglobin 13.5 g/dL (12.0-15.5) Hematocrit 40.3 % (36.0-47.0) Mean Corpuscular Volume 87 fL (79-100) Mean Corpuscular Hemoglobin 29 pg (25-35) Mean Corpuscular Hemoglobin Concent 34 g/dL (31-37) Red Cell Distribution Width 13.6 % (11.5-14.5) Platelet Count 235 x10^3/uL (140-400) Neutrophils (%) (Auto) 55 % (31-73) Lymphocytes (%) (Auto) 36 % (24-48) Monocytes (%) (Auto) 6 % (0-9) Eosinophils (%) (Auto) 3 % (0-3) Basophils (%) (Auto) 0 % (0-3) Neutrophils # (Auto) 4.6 x10^3/uL (1.8-7.7) Lymphocytes # (Auto) 3.1 x10^3/uL (1.0-4.8) Monocytes # (Auto) 0.5 x10^3/uL (0.0-1.1) Eosinophils # (Auto) 0.3 x10^3/uL (0.0-0.7) Basophils # (Auto) 0.0 x10^3/uL (0.0-0.2) Sodium Level 139 mmol/L (136-145) Potassium Level 3.7 mmol/L (3.5-5.1) Chloride Level 104 mmol/L (98-107) Carbon Dioxide Level 29 mmol/L (21-32) Anion Gap 6 (6-14) Blood Urea Nitrogen 4 mg/dL (7-20) Creatinine 0.6 mg/dL (0.6-1.0) Estimated GFR (Cockcroft-Gault) 108.1 Glucose Level 95 mg/dL (70-99) Calcium Level 8.7 mg/dL (8.5-10.1) Magnesium Level 2.2 mg/dL (1.8-2.4) Review of Systems Review of Systems: no changes in vision. no bleeding. Assessment and Plan Assessmemt and Plan Problems Medical Problems: (1) Abdominal pain Status: Acute (2) Small bowel obstruction Status: Acute Abdominal pain Diabetes, type 2 Arthritis UTI Plan: Continue clear liquids Continue Levaquin for UTI Trend KUBs DVT prophylaxis Home meds Trend labs Full code Comment Review of Relevant I have reviewed the following items brenda (where applicable) has been applied. Medications: Current Medications Medications (Trade) Dose Ordered Sig/Jamal Route PRN Reason Start Time Stop Time Status Last Admin Dose Admin Levofloxacin/ Dextrose 100 ml @ 100 mls/hr Q24H IV 06/11/21 13:00 06/11/21 13:44 Justifications for Admission Other Justification NOELO GRAHAM TRIPATHI III DO Jun 12, 2021 12:44
--- NOTE | 2021-06-12 12:58 | PDOC ---
SURGICAL PROGRESS NOTE DATE: 06/12/21 TIME: 12:57 Subjective Pt without c/o, hungry, passing flatus and stools, no pain Vital Signs Vital Signs Date Time Temp Pulse Resp B/P (MAP) Pulse Ox O2 Delivery O2 Flow Rate FiO2 06/12/21 11:00 98.0 66 16 135/79 (97) 95 Room Air 98.0 I&O Intake and Output 06/12/21 07:00 Intake Total 840 ml Output Total 1450 ml Balance -610 ml Intake Oral 840 ml Output Urine Total 900 ml Gastric Drainage Total 550 ml # Voids 1 General: Alert, Oriented X3, Cooperative, No acute distress Abdomen: Soft, No tenderness Labs Laboratory Tests Test 06/11/21 04:35 06/12/21 06:30 White Blood Count 10.6 x10^3/uL (4.0-11.0) 8.5 x10^3/uL (4.0-11.0) Red Blood Count 4.50 x10^6/uL (3.50-5.40) 4.64 x10^6/uL (3.50-5.40) Hemoglobin 13.3 g/dL (12.0-15.5) 13.5 g/dL (12.0-15.5) Hematocrit 39.1 % (36.0-47.0) 40.3 % (36.0-47.0) Mean Corpuscular Volume 87 fL (79-100) 87 fL (79-100) Mean Corpuscular Hemoglobin 30 pg (25-35) 29 pg (25-35) Mean Corpuscular Hemoglobin Concent 34 g/dL (31-37) 34 g/dL (31-37) Red Cell Distribution Width 13.2 % (11.5-14.5) 13.6 % (11.5-14.5) Platelet Count 223 x10^3/uL (140-400) 235 x10^3/uL (140-400) Neutrophils (%) (Auto) 68 % (31-73) 55 % (31-73) Lymphocytes (%) (Auto) 24 % (24-48) 36 % (24-48) Monocytes (%) (Auto) 6 % (0-9) 6 % (0-9) Eosinophils (%) (Auto) 2 % (0-3) 3 % (0-3) Basophils (%) (Auto) 0 % (0-3) 0 % (0-3) Neutrophils # (Auto) 7.3 x10^3/uL (1.8-7.7) 4.6 x10^3/uL (1.8-7.7) Lymphocytes # (Auto) 2.5 x10^3/uL (1.0-4.8) 3.1 x10^3/uL (1.0-4.8) Monocytes # (Auto) 0.6 x10^3/uL (0.0-1.1) 0.5 x10^3/uL (0.0-1.1) Eosinophils # (Auto) 0.2 x10^3/uL (0.0-0.7) 0.3 x10^3/uL (0.0-0.7) Basophils # (Auto) 0.0 x10^3/uL (0.0-0.2) 0.0 x10^3/uL (0.0-0.2) Sodium Level 142 mmol/L (136-145) 139 mmol/L (136-145) Potassium Level 3.2 mmol/L (3.5-5.1) 3.7 mmol/L (3.5-5.1) Chloride Level 105 mmol/L (98-107) 104 mmol/L (98-107) Carbon Dioxide Level 31 mmol/L (21-32) 29 mmol/L (21-32) Anion Gap 6 (6-14) 6 (6-14) Blood Urea Nitrogen 5 mg/dL (7-20) 4 mg/dL (7-20) Creatinine 0.5 mg/dL (0.6-1.0) 0.6 mg/dL (0.6-1.0) Estimated GFR (Cockcroft-Gault) 133.4 108.1 Glucose Level 102 mg/dL (70-99) 95 mg/dL (70-99) Calcium Level 8.3 mg/dL (8.5-10.1) 8.7 mg/dL (8.5-10.1) Phosphorus Level 2.5 mg/dL (2.6-4.7) Magnesium Level 2.2 mg/dL (1.8-2.4) 2.2 mg/dL (1.8-2.4) Laboratory Tests Test 06/12/21 06:30 White Blood Count 8.5 x10^3/uL (4.0-11.0) Red Blood Count 4.64 x10^6/uL (3.50-5.40) Hemoglobin 13.5 g/dL (12.0-15.5) Hematocrit 40.3 % (36.0-47.0) Mean Corpuscular Volume 87 fL (79-100) Mean Corpuscular Hemoglobin 29 pg (25-35) Mean Corpuscular Hemoglobin Concent 34 g/dL (31-37) Red Cell Distribution Width 13.6 % (11.5-14.5) Platelet Count 235 x10^3/uL (140-400) Neutrophils (%) (Auto) 55 % (31-73) Lymphocytes (%) (Auto) 36 % (24-48) Monocytes (%) (Auto) 6 % (0-9) Eosinophils (%) (Auto) 3 % (0-3) Basophils (%) (Auto) 0 % (0-3) Neutrophils # (Auto) 4.6 x10^3/uL (1.8-7.7) Lymphocytes # (Auto) 3.1 x10^3/uL (1.0-4.8) Monocytes # (Auto) 0.5 x10^3/uL (0.0-1.1) Eosinophils # (Auto) 0.3 x10^3/uL (0.0-0.7) Basophils # (Auto) 0.0 x10^3/uL (0.0-0.2) Sodium Level 139 mmol/L (136-145) Potassium Level 3.7 mmol/L (3.5-5.1) Chloride Level 104 mmol/L (98-107) Carbon Dioxide Level 29 mmol/L (21-32) Anion Gap 6 (6-14) Blood Urea Nitrogen 4 mg/dL (7-20) Creatinine 0.6 mg/dL (0.6-1.0) Estimated GFR (Cockcroft-Gault) 108.1 Glucose Level 95 mg/dL (70-99) Calcium Level 8.7 mg/dL (8.5-10.1) Magnesium Level 2.2 mg/dL (1.8-2.4) Problem List Problems Medical Problems: (1) Abdominal pain Status: Acute (2) Small bowel obstruction Status: Acute Assessment/Plan appears resolved ADAT and OK to d/c Justicifation of Admission Dx: Justifications for Admission: Justification of Admission Dx: N/A ARIELLE HARMAN MD Jun 12, 2021 12:58
[2021-06-12] MEDS: ENOXAPARIN 40 MG/0.4 ML SYRINGE. SQ SCH (13:08)
[2021-06-12] MEDS: IV NORMAL SALINE 1000ML BAG 1,000 ML IV SCH ×2 (13:09→20:59)
[2021-06-12 15:00] VITALS: BP 121/65
[2021-06-12 19:43] VITALS: BP 132/76
[2021-06-12 23:10] VITALS: BP 102/65
[2021-06-13 03:56] VITALS: BP 110/66
[2021-06-13 05:28] LABS: BASO % 0 % (0-3); EOS # 0.2 x10^3/uL (0.0-0.7); EOS % 3 % (0-3); HEMATOCRIT 37.7 % (36.0-47.0); HEMOGLOBIN 12.8 g/dL (12.0-15.5); LYMPH # 2.9 x10^3/uL (1.0-4.8); LYMPH % 35 % (24-48); MEAN CORPUSCULAR HEMOGLOBIN 29 pg (25-35); MEAN CORPUSCULAR HGB CONC 34 g/dL (31-37); MEAN CORPUSCULAR VOLUME 87 fL (79-100); MONO # 0.5 x10^3/uL (0.0-1.1); MONO % 6 % (0-9); NEUT # 4.7 x10^3/uL (1.8-7.7); NEUT % 56 % (31-73); PLATELET COUNT 218 x10^3/uL (140-400); RED BLOOD COUNT 4.36 x10^6/uL (3.50-5.40); WHITE BLOOD COUNT 8.4 x10^3/uL (4.0-11.0)
[2021-06-13 05:59] LABS: CALCIUM 8.4 mg/dL (8.5-10.1); CREATININE 0.5 mg/dL (0.6-1.0); GFR 133.4; POTASSIUM 3.4 mmol/L (3.5-5.1)
[2021-06-13 07:00] VITALS: BP 123/76
--- NOTE | 2021-06-13 10:20 | PDOC ---
PROGRESS NOTES Date of Service: DATE: 06/13/21 TIME: 10:18 Chief Complaint Chief Complaint CC: Abdominal pain Diabetes, type 2 Arthritis History of Present Illness History of Present Illness HPI: 46-year-old woman presents to the ER complaining of periumbilical abdominal pain over the past 3 days, patient endorses an aching cramping sensation that has come and gone but is now constant, nonradiating, associated with some nausea vomiting but no diarrhea, no fevers or chills, she has not have any prior surgical history or history of kidney stones, has a history of diabetes, no chest pain or shortness of breath, no urinary symptoms or blood in the stool. Upon further questioning, Pt states after NGT placement she has some relief from her ABD pain, but has sore throat. Denies any ABD surgeries except fro C section x2. 06/11/2021: Patient seen and examined. She is awake and has a NG tube. She reports she is doing well. Discussed with RN. Chart reviewed. 06/12/2021: Patient seen and examined. Awake and alert with NAD. She reports that she is tired but feeling well overall. NG tube has been removed. Discussed with RN. Chart reviewed. 06/13: Patient seen and examined. reg diet bri well mild hypokalemia, replaced Awake and alert with NAD. feeling well overall. NG tube has been removed. Discussed with RN. Chart reviewed. appears resolved ADAT and OK to d/c per surgery improved ok to dc from surgical pov Vitals Vitals Vital Signs Date Time Temp Pulse Resp B/P (MAP) Pulse Ox O2 Delivery O2 Flow Rate FiO2 06/13/21 07:00 98.1 64 18 123/76 (92) 96 Room Air 98.1 Physical Exam General: Alert, Oriented X3, Cooperative, No acute distress Heart: Regular rate, Normal S1, Normal S2 Abdomen: Soft, No tenderness Extremities: No clubbing, No cyanosis Skin: No rashes, No breakdown Labs LABS CT ABDOMEN+PELVIS W Clinical Indication: Reason: Periumbilical abdominal pain; Comparison: None. Technique: Helical CT imaging of the abdomen and pelvis is performed after 75 cc of Omnipaque 300 IV contrast. Oral contrast not administered. Findings: Lung bases are clear. Cardiac size normal. There is moderate fatty infiltration of the liver. There is trace right subphrenic ascites. The gallbladder, spleen, pancreas, adrenal glands, abdominal aorta, and kidneys are normal. The gastric antrum is not well distended accentuating the wall thickness. No surrounding inflammation. There is a fat-containing umbilical hernia. There is right lower abdomen free fluid. The appendix is normal. There is mildly dilated mid small bowel that demonstrates feces sign. There is inflammation surrounding small bowel distal to the dilated bowel, for example image 60. These small bowel loops are mildly thickened with enhancement, coronal image 29. The urinary bladder is normal. There is mild pelvic free fluid. The urinary bladder is normal. There is grade 1 anterolisthesis of L4 on L5. No acute bone abnormality. IMPRESSION: 1. There is mid small bowel obstruction. At the point of transition in the right lower abdomen the small bowel is mildly thick-walled with hyperenhancement and there is surrounding induration suggesting focal enteritis causing obstruction. There is moderate free fluid just inferior in the right lower abdomen. 2. Fatty infiltration of the liver. 3. Trace right subphrenic ascites. 4. Mild pelvic free fluid. Electronically signed by: Chapincito Stevenson MD (06/10/2021 6:13 AM) [facility] DICTATED and SIGNED BY: CHAPINCITO STEVENSON MD DATE: 06/10/21 [id number] EXAM: ABDOMEN 2 VIEWS WITH PA CHEST History: Small bowel obstruction TECHNIQUE: An upright view the chest and upright and supine views of the abdomen COMPARISON: 06/10/2021. FINDINGS: The cardiomediastinal silhouette grossly appears unremarkable. Minimal bilateral lung atelectasis or infiltrate. Feeding tube is identified in stomach. Feces and gas identified in the colon. Nonspecific bowel gas pattern. IMPRESSION: 1. Nonspecific bowel gas pattern. 2. Minimal bilateral lung atelectasis or infiltrate. Electronically signed by: Maximino Kumar MD (06/11/2021 8:16 AM) [id number] DICTATED and SIGNED BY: MAXIMINO KUMAR MD DATE: 06/11/21 [id number] Laboratory Tests Test 06/13/21 04:00 06/13/21 04:20 Sodium Level 140 mmol/L (136-145) Potassium Level 3.4 mmol/L (3.5-5.1) Chloride Level 106 mmol/L (98-107) Carbon Dioxide Level 28 mmol/L (21-32) Anion Gap 6 (6-14) Blood Urea Nitrogen 5 mg/dL (7-20) Creatinine 0.5 mg/dL (0.6-1.0) Estimated GFR (Cockcroft-Gault) 133.4 Glucose Level 92 mg/dL (70-99) Calcium Level 8.4 mg/dL (8.5-10.1) Magnesium Level 2.0 mg/dL (1.8-2.4) White Blood Count 8.4 x10^3/uL (4.0-11.0) Red Blood Count 4.36 x10^6/uL (3.50-5.40) Hemoglobin 12.8 g/dL (12.0-15.5) Hematocrit 37.7 % (36.0-47.0) Mean Corpuscular Volume 87 fL (79-100) Mean Corpuscular Hemoglobin 29 pg (25-35) Mean Corpuscular Hemoglobin Concent 34 g/dL (31-37) Red Cell Distribution Width 13.0 % (11.5-14.5) Platelet Count 218 x10^3/uL (140-400) Neutrophils (%) (Auto) 56 % (31-73) Lymphocytes (%) (Auto) 35 % (24-48) Monocytes (%) (Auto) 6 % (0-9) Eosinophils (%) (Auto) 3 % (0-3) Basophils (%) (Auto) 0 % (0-3) Neutrophils # (Auto) 4.7 x10^3/uL (1.8-7.7) Lymphocytes # (Auto) 2.9 x10^3/uL (1.0-4.8) Monocytes # (Auto) 0.5 x10^3/uL (0.0-1.1) Eosinophils # (Auto) 0.2 x10^3/uL (0.0-0.7) Basophils # (Auto) 0.0 x10^3/uL (0.0-0.2) Assessment and Plan Assessmemt and Plan Problems Medical Problems: (1) Abdominal pain Status: Acute (2) Small bowel obstruction Status: Acute Comment Review of Relevant I have reviewed the following items brenda (where applicable) has been applied. Labs Laboratory Tests Test 06/12/21 06:30 06/13/21 04:00 06/13/21 04:20 White Blood Count 8.5 x10^3/uL (4.0-11.0) 8.4 x10^3/uL (4.0-11.0) Red Blood Count 4.64 x10^6/uL (3.50-5.40) 4.36 x10^6/uL (3.50-5.40) Hemoglobin 13.5 g/dL (12.0-15.5) 12.8 g/dL (12.0-15.5) Hematocrit 40.3 % (36.0-47.0) 37.7 % (36.0-47.0) Mean Corpuscular Volume 87 fL (79-100) 87 fL (79-100) Mean Corpuscular Hemoglobin 29 pg (25-35) 29 pg (25-35) Mean Corpuscular Hemoglobin Concent 34 g/dL (31-37) 34 g/dL (31-37) Red Cell Distribution Width 13.6 % (11.5-14.5) 13.0 % (11.5-14.5) Platelet Count 235 x10^3/uL (140-400) 218 x10^3/uL (140-400) Neutrophils (%) (Auto) 55 % (31-73) 56 % (31-73) Lymphocytes (%) (Auto) 36 % (24-48) 35 % (24-48) Monocytes (%) (Auto) 6 % (0-9) 6 % (0-9) Eosinophils (%) (Auto) 3 % (0-3) 3 % (0-3) Basophils (%) (Auto) 0 % (0-3) 0 % (0-3) Neutrophils # (Auto) 4.6 x10^3/uL (1.8-7.7) 4.7 x10^3/uL (1.8-7.7) Lymphocytes # (Auto) 3.1 x10^3/uL (1.0-4.8) 2.9 x10^3/uL (1.0-4.8) Monocytes # (Auto) 0.5 x10^3/uL (0.0-1.1) 0.5 x10^3/uL (0.0-1.1) Eosinophils # (Auto) 0.3 x10^3/uL (0.0-0.7) 0.2 x10^3/uL (0.0-0.7) Basophils # (Auto) 0.0 x10^3/uL (0.0-0.2) 0.0 x10^3/uL (0.0-0.2) Sodium Level 139 mmol/L (136-145) 140 mmol/L (136-145) Potassium Level 3.7 mmol/L (3.5-5.1) 3.4 mmol/L (3.5-5.1) Chloride Level 104 mmol/L (98-107) 106 mmol/L (98-107) Carbon Dioxide Level 29 mmol/L (21-32) 28 mmol/L (21-32) Anion Gap 6 (6-14) 6 (6-14) Blood Urea Nitrogen 4 mg/dL (7-20) 5 mg/dL (7-20) Creatinine 0.6 mg/dL (0.6-1.0) 0.5 mg/dL (0.6-1.0) Estimated GFR (Cockcroft-Gault) 108.1 133.4 Glucose Level 95 mg/dL (70-99) 92 mg/dL (70-99) Calcium Level 8.7 mg/dL (8.5-10.1) 8.4 mg/dL (8.5-10.1) Magnesium Level 2.2 mg/dL (1.8-2.4) 2.0 mg/dL (1.8-2.4) Laboratory Tests Test 06/13/21 04:00 06/13/21 04:20 Sodium Level 140 mmol/L (136-145) Potassium Level 3.4 mmol/L (3.5-5.1) Chloride Level 106 mmol/L (98-107) Carbon Dioxide Level 28 mmol/L (21-32) Anion Gap 6 (6-14) Blood Urea Nitrogen 5 mg/dL (7-20) Creatinine 0.5 mg/dL (0.6-1.0) Estimated GFR (Cockcroft-Gault) 133.4 Glucose Level 92 mg/dL (70-99) Calcium Level 8.4 mg/dL (8.5-10.1) Magnesium Level 2.0 mg/dL (1.8-2.4) White Blood Count 8.4 x10^3/uL (4.0-11.0) Red Blood Count 4.36 x10^6/uL (3.50-5.40) Hemoglobin 12.8 g/dL (12.0-15.5) Hematocrit 37.7 % (36.0-47.0) Mean Corpuscular Volume 87 fL (79-100) Mean Corpuscular Hemoglobin 29 pg (25-35) Mean Corpuscular Hemoglobin Concent 34 g/dL (31-37) Red Cell Distribution Width 13.0 % (11.5-14.5) Platelet Count 218 x10^3/uL (140-400) Neutrophils (%) (Auto) 56 % (31-73) Lymphocytes (%) (Auto) 35 % (24-48) Monocytes (%) (Auto) 6 % (0-9) Eosinophils (%) (Auto) 3 % (0-3) Basophils (%) (Auto) 0 % (0-3) Neutrophils # (Auto) 4.7 x10^3/uL (1.8-7.7) Lymphocytes # (Auto) 2.9 x10^3/uL (1.0-4.8) Monocytes # (Auto) 0.5 x10^3/uL (0.0-1.1) Eosinophils # (Auto) 0.2 x10^3/uL (0.0-0.7) Basophils # (Auto) 0.0 x10^3/uL (0.0-0.2) Microbiology 06/10/21 Urine Culture - Final, Complete 06/10/21 Antimicrobic Susceptibility - Final, Complete Medications Current Medications Morphine Sulfate (Morphine Sulfate) 4 mg 1X ONCE IVP Last administered on 06/10/21at 04:08; Start 06/10/21 at 04:30; Stop 06/10/21 at 04:31; Status DC Multi-Ingredient Mouthwash/Gargle (Gi Cocktail) 20 ml 1X ONCE SWSW Last administered on 06/10/21at 04:20; Start 06/10/21 at 04:30; Stop 06/10/21 at 04:31; Status DC Ondansetron HCl (Zofran) 8 mg 1X ONCE IM ; Start 06/10/21 at 04:30; Stop 06/10/21 at 04:31; Status Cancel Ondansetron HCl (Zofran) 4 mg STK-MED ONCE .ROUTE ; Start 06/10/21 at 04:11; Stop 06/10/21 at 04:12; Status DC Ondansetron HCl (Zofran) 8 mg 1X ONCE IV Last administered on 06/10/21at 04:20; Start 06/10/21 at 04:30; Stop 06/10/21 at 04:31; Status DC Iohexol (Omnipaque 300 Mg/ml) 75 ml 1X ONCE IV Last administered on 06/10/21at 05:27; Start 06/10/21 at 05:00; Stop 06/10/21 at 05:01; Status DC Info (CONTRAST GIVEN -- Rx MONITORING) 1 each PRN DAILY PRN MC SEE COMMENTS; Start 06/10/21 at 04:45; Stop 06/12/21 at 04:44; Status DC Benzocaine (Hurricaine One) 1 spray 1X ONCE MM ; Start 06/10/21 at 07:15; Stop 06/10/21 at 07:16; Status DC Morphine Sulfate (Morphine Sulfate) 4 mg 1X ONCE IVP Last administered on 06/10/21at 07:30; Start 06/10/21 at 07:30; Stop 06/10/21 at 07:31; Status DC Ondansetron HCl (Zofran) 4 mg PRN Q8HRS PRN IVP NAUSEA/VOMITING; Start 06/10/21 at 07:45; Stop 06/11/21 at 07:44; Status DC Morphine Sulfate (Morphine Sulfate) 4 mg PRN Q2HR PRN IVP PAIN; Start 06/10/21 at 07:45; Stop 06/11/21 at 07:44; Status DC Sodium Chloride 1,000 ml @ 100 mls/hr Q10H IV Last administered on 06/11/21at 03:13; Start 06/10/21 at 07:45; Stop 06/11/21 at 07:44; Status DC Sennosides (Senna) 17.2 mg PRN BID PRN PO CONSTIPATION; Start 06/10/21 at 12:15 Docusate Sodium (Colace) 100 mg PRN DAILY PRN PO HARD STOOLS; Start 06/10/21 at 12:15 Ondansetron HCl (Zofran) 4 mg PRN Q6HRS PRN IVP NAUSEA/VOMITING; Start 06/10/21 at 12:15 Dextrose (Dextrose 50%-Water Syringe) 12.5 gm PRN Q15MIN PRN IV SEE COMMENTS; Start 06/10/21 at 12:15 Sodium Chloride 1,000 ml @ 100 mls/hr Q10H IV Last administered on 06/12/21at 20:59; Start 06/10/21 at 12:15 Acetaminophen (Tylenol) 650 mg PRN Q4HRS PRN PO TEMP OVER 100.4F OR MILD PAIN Last administered on 06/11/21at 20:49; Start 06/10/21 at 12:15 Enoxaparin Sodium (Lovenox 40mg Syringe) 40 mg Q24H SQ Last administered on 06/12/21at 13:08; Start 06/10/21 at 14:00 Morphine Sulfate (Morphine Sulfate) 1 mg PRN Q1HR PRN IV PAIN; Start 06/10/21 at 12:15 Morphine Sulfate (Morphine Sulfate) 2 mg PRN Q2HR PRN IVP SEVERE PAIN 7-10 Last administered on 06/11/21at 11:01; Start 06/10/21 at 12:15; Stop 06/11/21 at 12:14; Status DC Prochlorperazine Edisylate (Compazine) 10 mg PRN Q6HRS PRN IV NAUSEA/VOMITING, 2ND CHOICE; Start 06/10/21 at 12:15 Levofloxacin/ Dextrose 100 ml @ 100 mls/hr Q24H IV Last administered on 06/12/21at 13:08; Start 06/11/21 at 13:00 Potassium Chloride/Water 100 ml @ 100 mls/hr Q1H IV Last administered on 06/11/21at 22:16; Start 06/11/21 at 12:30; Stop 06/11/21 at 16:29; Status DC Vitals/I & O Vital Sign - Last 24 Hours 06/12/21 06/12/21 06/12/21 06/12/21 11:00 15:00 19:43 20:14 Temp 98.0 98.2 98.8 98.0 98.2 98.8 Pulse 66 81 69 Resp 16 18 18 B/P (MAP) 135/79 (97) 121/65 (83) 132/76 (94) Pulse Ox 95 96 95 O2 Delivery Room Air Room Air Room Air Room Air 06/12/21 06/13/21 06/13/21 23:10 03:56 07:00 Temp 99.1 98.2 98.1 99.1 98.2 98.1 Pulse 66 61 64 Resp 16 18 18 B/P (MAP) 102/65 (77) 110/66 (81) 123/76 (92) Pulse Ox 95 96 96 O2 Delivery Room Air Room Air Room Air Intake and Output 06/12/21 06/12/21 06/13/21 15:00 23:00 07:00 Intake Total 1150 ml 120 ml 1340 ml Balance 1150 ml 120 ml 1340 ml Justicifation of Admission Dx: Justifications for Admission: Justification of Admission Dx: N/A GRETTA JOE MD Jun 13, 2021 10:20
[2021-06-13] MEDS ORDERED: POTASSIUM CHLORIDE 20 MEQ TABLET.ER. PO ONE (11:00)
[2021-06-13 11:19] VITALS: BP 125/72
--- NOTE | 2021-06-13 11:23 | PDOC ---
SURGICAL PROGRESS NOTE DATE: 06/13/21 TIME: 11:22 Subjective tolerating diet no abdominal pain had stool yesterday Vital Signs Vital Signs Date Time Temp Pulse Resp B/P (MAP) Pulse Ox O2 Delivery O2 Flow Rate FiO2 06/13/21 11:19 97.9 64 18 125/72 (89) 97 Room Air 97.9 I&O Intake and Output 06/13/21 07:00 Intake Total 2610 ml Balance 2610 ml Intake Oral 360 ml IV Total 2250 ml # Voids 1 General: Alert, Oriented X3, Cooperative Abdomen: Soft, No tenderness Labs Laboratory Tests Test 06/12/21 06:30 06/13/21 04:00 06/13/21 04:20 White Blood Count 8.5 x10^3/uL (4.0-11.0) 8.4 x10^3/uL (4.0-11.0) Red Blood Count 4.64 x10^6/uL (3.50-5.40) 4.36 x10^6/uL (3.50-5.40) Hemoglobin 13.5 g/dL (12.0-15.5) 12.8 g/dL (12.0-15.5) Hematocrit 40.3 % (36.0-47.0) 37.7 % (36.0-47.0) Mean Corpuscular Volume 87 fL (79-100) 87 fL (79-100) Mean Corpuscular Hemoglobin 29 pg (25-35) 29 pg (25-35) Mean Corpuscular Hemoglobin Concent 34 g/dL (31-37) 34 g/dL (31-37) Red Cell Distribution Width 13.6 % (11.5-14.5) 13.0 % (11.5-14.5) Platelet Count 235 x10^3/uL (140-400) 218 x10^3/uL (140-400) Neutrophils (%) (Auto) 55 % (31-73) 56 % (31-73) Lymphocytes (%) (Auto) 36 % (24-48) 35 % (24-48) Monocytes (%) (Auto) 6 % (0-9) 6 % (0-9) Eosinophils (%) (Auto) 3 % (0-3) 3 % (0-3) Basophils (%) (Auto) 0 % (0-3) 0 % (0-3) Neutrophils # (Auto) 4.6 x10^3/uL (1.8-7.7) 4.7 x10^3/uL (1.8-7.7) Lymphocytes # (Auto) 3.1 x10^3/uL (1.0-4.8) 2.9 x10^3/uL (1.0-4.8) Monocytes # (Auto) 0.5 x10^3/uL (0.0-1.1) 0.5 x10^3/uL (0.0-1.1) Eosinophils # (Auto) 0.3 x10^3/uL (0.0-0.7) 0.2 x10^3/uL (0.0-0.7) Basophils # (Auto) 0.0 x10^3/uL (0.0-0.2) 0.0 x10^3/uL (0.0-0.2) Sodium Level 139 mmol/L (136-145) 140 mmol/L (136-145) Potassium Level 3.7 mmol/L (3.5-5.1) 3.4 mmol/L (3.5-5.1) Chloride Level 104 mmol/L (98-107) 106 mmol/L (98-107) Carbon Dioxide Level 29 mmol/L (21-32) 28 mmol/L (21-32) Anion Gap 6 (6-14) 6 (6-14) Blood Urea Nitrogen 4 mg/dL (7-20) 5 mg/dL (7-20) Creatinine 0.6 mg/dL (0.6-1.0) 0.5 mg/dL (0.6-1.0) Estimated GFR (Cockcroft-Gault) 108.1 133.4 Glucose Level 95 mg/dL (70-99) 92 mg/dL (70-99) Calcium Level 8.7 mg/dL (8.5-10.1) 8.4 mg/dL (8.5-10.1) Magnesium Level 2.2 mg/dL (1.8-2.4) 2.0 mg/dL (1.8-2.4) Laboratory Tests Test 06/13/21 04:00 06/13/21 04:20 Sodium Level 140 mmol/L (136-145) Potassium Level 3.4 mmol/L (3.5-5.1) Chloride Level 106 mmol/L (98-107) Carbon Dioxide Level 28 mmol/L (21-32) Anion Gap 6 (6-14) Blood Urea Nitrogen 5 mg/dL (7-20) Creatinine 0.5 mg/dL (0.6-1.0) Estimated GFR (Cockcroft-Gault) 133.4 Glucose Level 92 mg/dL (70-99) Calcium Level 8.4 mg/dL (8.5-10.1) Magnesium Level 2.0 mg/dL (1.8-2.4) White Blood Count 8.4 x10^3/uL (4.0-11.0) Red Blood Count 4.36 x10^6/uL (3.50-5.40) Hemoglobin 12.8 g/dL (12.0-15.5) Hematocrit 37.7 % (36.0-47.0) Mean Corpuscular Volume 87 fL (79-100) Mean Corpuscular Hemoglobin 29 pg (25-35) Mean Corpuscular Hemoglobin Concent 34 g/dL (31-37) Red Cell Distribution Width 13.0 % (11.5-14.5) Platelet Count 218 x10^3/uL (140-400) Neutrophils (%) (Auto) 56 % (31-73) Lymphocytes (%) (Auto) 35 % (24-48) Monocytes (%) (Auto) 6 % (0-9) Eosinophils (%) (Auto) 3 % (0-3) Basophils (%) (Auto) 0 % (0-3) Neutrophils # (Auto) 4.7 x10^3/uL (1.8-7.7) Lymphocytes # (Auto) 2.9 x10^3/uL (1.0-4.8) Monocytes # (Auto) 0.5 x10^3/uL (0.0-1.1) Eosinophils # (Auto) 0.2 x10^3/uL (0.0-0.7) Basophils # (Auto) 0.0 x10^3/uL (0.0-0.2) Problem List Problems Medical Problems: (1) Abdominal pain Status: Acute (2) Small bowel obstruction Status: Acute Assessment/Plan improved ok to dc from surgical pov Justicifation of Admission Dx: Justifications for Admission: Justification of Admission Dx: N/A RACHID RASHEED APRN Jun 13, 2021 11:23
--- NOTE | 2021-06-13 11:51 | PDOC3 ---
Discharge Summary Date of Admission: Jun 10, 2021 Date of Discharge: Jun 13, 2021 Admitting Diagnosis comment: History of Present Illness History of Present Illness HPI: 46-year-old woman presents to the ER complaining of periumbilical abdominal pain over the past 3 days, patient endorses an aching cramping sensation that has come and gone but is now constant, nonradiating, associated with some nausea vomiting but no diarrhea, no fevers or chills, she has not have any prior surgical history or history of kidney stones, has a history of diabetes, no chest pain or shortness of breath, no urinary symptoms or blood in the stool. Upon further questioning, Pt states after NGT placement she has some relief from her ABD pain, but has sore throat. Denies any ABD surgeries except fro C section x2. CONSULTS SURGERY COMPLICATIONS NONE D/C CONDITION GOOD DISCHARGE DX Chief Complaint CC: Abdominal pain Diabetes, type 2 Arthritis History of Present Illness History of Present Illness HPI: 46-year-old woman presents to the ER complaining of periumbilical abdominal pain over the past 3 days, patient endorses an aching cramping sensation that has come and gone but is now constant, nonradiating, associated with some nausea vomiting but no diarrhea, no fevers or chills, she has not have any prior surgical history or history of kidney stones, has a history of diabetes, no chest pain or shortness of breath, no urinary symptoms or blood in the stool. Upon further questioning, Pt states after NGT placement she has some relief from her ABD pain, but has sore throat. Denies any ABD surgeries except fro C section x2. 06/11/2021: Patient seen and examined. She is awake and has a NG tube. She reports she is doing well. Discussed with RN. Chart reviewed. 06/12/2021: Patient seen and examined. Awake and alert with NAD. She reports that she is tired but feeling well overall. NG tube has been removed. Discussed with RN. Chart reviewed. 06/13: Patient seen and examined. reg diet bri well mild hypokalemia, replaced Awake and alert with NAD. feeling well overall. NG tube has been removed. Discussed with RN. Chart reviewed. appears resolved ADAT and OK to d/c per surgery improved ok to dc from surgical pov D/C PLANNING 34 MIN Vitals Vitals Vital Signs Date Time Temp Pulse Resp B/P (MAP) Pulse Ox O2 Delivery O2 Flow Rate FiO2 06/13/21 07:00 98.1 64 18 123/76 (92) 96 Room Air 98.1 Physical Exam General: Alert, Oriented X3, Cooperative, No acute distress Heart: Regular rate, Normal S1, Normal S2 Abdomen: Soft, No tenderness Extremities: No clubbing, No cyanosis Skin: No rashes, No breakdown Labs LABS CT ABDOMEN+PELVIS W Clinical Indication: Reason: Periumbilical abdominal pain; Comparison: None. Technique: Helical CT imaging of the abdomen and pelvis is performed after 75 cc of Omnipaque 300 IV contrast. Oral contrast not administered. Findings: Lung bases are clear. Cardiac size normal. There is moderate fatty infiltration of the liver. There is trace right subphrenic ascites. The gallbladder, spleen, pancreas, adrenal glands, abdominal aorta, and kidneys are normal. The gastric antrum is not well distended accentuating the wall thickness. No surrounding inflammation. There is a fat-containing umbilical hernia. There is right lower abdomen free fluid. The appendix is normal. There is mildly dilated mid small bowel that demonstrates feces sign. There is inflammation surrounding small bowel distal to the dilated bowel, for example image 60. These small bowel loops are mildly thickened with enhancement, coronal image 29. The urinary bladder is normal. There is mild pelvic free fluid. The urinary bladder is normal. There is grade 1 anterolisthesis of L4 on L5. No acute bone abnormality. IMPRESSION: 1. There is mid small bowel obstruction. At the point of transition in the right lower abdomen the small bowel is mildly thick-walled with hyperenhancement and there is surrounding induration suggesting focal enteritis causing obstruction. There is moderate free fluid just inferior in the right lower abdomen. 2. Fatty infiltration of the liver. 3. Trace right subphrenic ascites. 4. Mild pelvic free fluid. Electronically signed by: Chapincito Stevenson MD (06/10/2021 6:13 AM) [facility] DICTATED and SIGNED BY: CHAPINCITO STEVENSON MD DATE: 06/10/21 [id number] EXAM: ABDOMEN 2 VIEWS WITH PA CHEST History: Small bowel obstruction TECHNIQUE: An upright view the chest and upright and supine views of the abdomen COMPARISON: 06/10/2021. FINDINGS: The cardiomediastinal silhouette grossly appears unremarkable. Minimal bilateral lung atelectasis or infiltrate. Feeding tube is identified in stomach. Feces and gas identified in the colon. Nonspecific bowel gas pattern. IMPRESSION: 1. Nonspecific bowel gas pattern. 2. Minimal bilateral lung atelectasis or infiltrate. Electronically signed by: Maximino Kumar MD (06/11/2021 8:16 AM) [id number] DICTATED and SIGNED BY: MAXIMINO KUMAR MD DATE: 06/11/21 [id number] FINAL DIAGNOSIS Problems Medical Problems: (1) Abdominal pain Status: Acute (2) Small bowel obstruction Status: Acute Brief Hospital Course Ms. Thomas is a 46 old [sex] who presented with [ SBO] CONDITION AT DISCHARGE: Improved Discharge Medications Current Medications Morphine Sulfate (Morphine Sulfate) 4 mg 1X ONCE IVP Last administered on 06/10/21at 04:08; Start 06/10/21 at 04:30; Stop 06/10/21 at 04:31; Status DC Multi-Ingredient Mouthwash/Gargle (Gi Cocktail) 20 ml 1X ONCE SWSW Last administered on 06/10/21at 04:20; Start 06/10/21 at 04:30; Stop 06/10/21 at 04:31; Status DC Ondansetron HCl (Zofran) 8 mg 1X ONCE IM ; Start 06/10/21 at 04:30; Stop 06/10/21 at 04:31; Status Cancel Ondansetron HCl (Zofran) 4 mg STK-MED ONCE .ROUTE ; Start 06/10/21 at 04:11; Stop 06/10/21 at 04:12; Status DC Ondansetron HCl (Zofran) 8 mg 1X ONCE IV Last administered on 06/10/21at 04:20; Start 06/10/21 at 04:30; Stop 06/10/21 at 04:31; Status DC Iohexol (Omnipaque 300 Mg/ml) 75 ml 1X ONCE IV Last administered on 06/10/21at 05:27; Start 06/10/21 at 05:00; Stop 06/10/21 at 05:01; Status DC Info (CONTRAST GIVEN -- Rx MONITORING) 1 each PRN DAILY PRN MC SEE COMMENTS; Start 06/10/21 at 04:45; Stop 06/12/21 at 04:44; Status DC Benzocaine (Hurricaine One) 1 spray 1X ONCE MM ; Start 06/10/21 at 07:15; Stop 06/10/21 at 07:16; Status DC Morphine Sulfate (Morphine Sulfate) 4 mg 1X ONCE IVP Last administered on at 07:30; Start 06/10/21 at 07:30; Stop 06/10/21 at 07:31; Status DC Ondansetron HCl (Zofran) 4 mg PRN Q8HRS PRN IVP NAUSEA/VOMITING; Start 06/10/21 at 07:45; Stop 06/11/21 at 07:44; Status DC Morphine Sulfate (Morphine Sulfate) 4 mg PRN Q2HR PRN IVP PAIN; Start 06/10/21 at 07:45; Stop 06/11/21 at 07:44; Status DC Sodium Chloride 1,000 ml @ 100 mls/hr Q10H IV Last administered on 06/11/21at 03:13; Start 06/10/21 at 07:45; Stop 06/11/21 at 07:44; Status DC Sennosides (Senna) 17.2 mg PRN BID PRN PO CONSTIPATION; Start 06/10/21 at 12:15 Docusate Sodium (Colace) 100 mg PRN DAILY PRN PO HARD STOOLS; Start 06/10/21 at 12:15 Ondansetron HCl (Zofran) 4 mg PRN Q6HRS PRN IVP NAUSEA/VOMITING; Start 06/10/21 at 12:15 Dextrose (Dextrose 50%-Water Syringe) 12.5 gm PRN Q15MIN PRN IV SEE COMMENTS; Start 06/10/21 at 12:15 Sodium Chloride 1,000 ml @ 100 mls/hr Q10H IV Last administered on 06/12/21at 20:59; Start 06/10/21 at 12:15 Acetaminophen (Tylenol) 650 mg PRN Q4HRS PRN PO TEMP OVER 100.4F OR MILD PAIN Last administered on 06/11/21at 20:49; Start 06/10/21 at 12:15 Enoxaparin Sodium (Lovenox 40mg Syringe) 40 mg Q24H SQ Last administered on 06/12/21at 13:08; Start 06/10/21 at 14:00 Morphine Sulfate (Morphine Sulfate) 1 mg PRN Q1HR PRN IV PAIN; Start 06/10/21 at 12:15 Morphine Sulfate (Morphine Sulfate) 2 mg PRN Q2HR PRN IVP SEVERE PAIN 7-10 Last administered on 06/11/21at 11:01; Start 06/10/21 at 12:15; Stop 06/11/21 at 12:14; Status DC Prochlorperazine Edisylate (Compazine) 10 mg PRN Q6HRS PRN IV NAUSEA/VOMITING, 2ND CHOICE; Start 06/10/21 at 12:15 Levofloxacin/ Dextrose 100 ml @ 100 mls/hr Q24H IV Last administered on 06/12/21at 13:08; Start 06/11/21 at 13:00 Potassium Chloride/Water 100 ml @ 100 mls/hr Q1H IV Last administered on 06/11/21at 22:16; Start 06/11/21 at 12:30; Stop 06/11/21 at 16:29; Status DC Potassium Chloride (Klor-Con) 40 meq 1X ONCE PO Last administered on 06/13/21at 10:32; Start 06/13/21 at 11:00; Stop 06/13/21 at 11:01; Status DC Vital Signs Vital Signs Date Time Temp Pulse Resp B/P (MAP) Pulse Ox O2 Delivery O2 Flow Rate FiO2 06/13/21 11:19 97.9 64 18 125/72 (89) 97 Room Air 97.9 Labs Laboratory Tests Test 06/12/21 06:30 06/13/21 04:00 06/13/21 04:20 White Blood Count 8.5 x10^3/uL (4.0-11.0) 8.4 x10^3/uL (4.0-11.0) Red Blood Count 4.64 x10^6/uL (3.50-5.40) 4.36 x10^6/uL (3.50-5.40) Hemoglobin 13.5 g/dL (12.0-15.5) 12.8 g/dL (12.0-15.5) Hematocrit 40.3 % (36.0-47.0) 37.7 % (36.0-47.0) Mean Corpuscular Volume 87 fL (79-100) 87 fL (79-100) Mean Corpuscular Hemoglobin 29 pg (25-35) 29 pg (25-35) Mean Corpuscular Hemoglobin Concent 34 g/dL (31-37) 34 g/dL (31-37) Red Cell Distribution Width 13.6 % (11.5-14.5) 13.0 % (11.5-14.5) Platelet Count 235 x10^3/uL (140-400) 218 x10^3/uL (140-400) Neutrophils (%) (Auto) 55 % (31-73) 56 % (31-73) Lymphocytes (%) (Auto) 36 % (24-48) 35 % (24-48) Monocytes (%) (Auto) 6 % (0-9) 6 % (0-9) Eosinophils (%) (Auto) 3 % (0-3) 3 % (0-3) Basophils (%) (Auto) 0 % (0-3) 0 % (0-3) Neutrophils # (Auto) 4.6 x10^3/uL (1.8-7.7) 4.7 x10^3/uL (1.8-7.7) Lymphocytes # (Auto) 3.1 x10^3/uL (1.0-4.8) 2.9 x10^3/uL (1.0-4.8) Monocytes # (Auto) 0.5 x10^3/uL (0.0-1.1) 0.5 x10^3/uL (0.0-1.1) Eosinophils # (Auto) 0.3 x10^3/uL (0.0-0.7) 0.2 x10^3/uL (0.0-0.7) Basophils # (Auto) 0.0 x10^3/uL (0.0-0.2) 0.0 x10^3/uL (0.0-0.2) Sodium Level 139 mmol/L (136-145) 140 mmol/L (136-145) Potassium Level 3.7 mmol/L (3.5-5.1) 3.4 mmol/L (3.5-5.1) Chloride Level 104 mmol/L (98-107) 106 mmol/L (98-107) Carbon Dioxide Level 29 mmol/L (21-32) 28 mmol/L (21-32) Anion Gap 6 (6-14) 6 (6-14) Blood Urea Nitrogen 4 mg/dL (7-20) 5 mg/dL (7-20) Creatinine 0.6 mg/dL (0.6-1.0) 0.5 mg/dL (0.6-1.0) Estimated GFR (Cockcroft-Gault) 108.1 133.4 Glucose Level 95 mg/dL (70-99) 92 mg/dL (70-99) Calcium Level 8.7 mg/dL (8.5-10.1) 8.4 mg/dL (8.5-10.1) Magnesium Level 2.2 mg/dL (1.8-2.4) 2.0 mg/dL (1.8-2.4) Laboratory Tests Test 06/13/21 04:00 06/13/21 04:20 Sodium Level 140 mmol/L (136-145) Potassium Level 3.4 mmol/L (3.5-5.1) Chloride Level 106 mmol/L (98-107) Carbon Dioxide Level 28 mmol/L (21-32) Anion Gap 6 (6-14) Blood Urea Nitrogen 5 mg/dL (7-20) Creatinine 0.5 mg/dL (0.6-1.0) Estimated GFR (Cockcroft-Gault) 133.4 Glucose Level 92 mg/dL (70-99) Calcium Level 8.4 mg/dL (8.5-10.1) Magnesium Level 2.0 mg/dL (1.8-2.4) White Blood Count 8.4 x10^3/uL (4.0-11.0) Red Blood Count 4.36 x10^6/uL (3.50-5.40) Hemoglobin 12.8 g/dL (12.0-15.5) Hematocrit 37.7 % (36.0-47.0) Mean Corpuscular Volume 87 fL (79-100) Mean Corpuscular Hemoglobin 29 pg (25-35) Mean Corpuscular Hemoglobin Concent 34 g/dL (31-37) Red Cell Distribution Width 13.0 % (11.5-14.5) Platelet Count 218 x10^3/uL (140-400) Neutrophils (%) (Auto) 56 % (31-73) Lymphocytes (%) (Auto) 35 % (24-48) Monocytes (%) (Auto) 6 % (0-9) Eosinophils (%) (Auto) 3 % (0-3) Basophils (%) (Auto) 0 % (0-3) Neutrophils # (Auto) 4.7 x10^3/uL (1.8-7.7) Lymphocytes # (Auto) 2.9 x10^3/uL (1.0-4.8) Monocytes # (Auto) 0.5 x10^3/uL (0.0-1.1) Eosinophils # (Auto) 0.2 x10^3/uL (0.0-0.7) Basophils # (Auto) 0.0 x10^3/uL (0.0-0.2) Allergies Allergies Coded Allergies Type Severity Reaction Last Updated Verified No Known Drug Allergies 06/10/21 No Disposition/Orders: D/C to Home Justicifation of Admission Dx: Justifications for Admission: Justification of Admission Dx: N/A GRETTA JOE MD Jun 13, 2021 11:51
[2021-06-13] MEDS ORDERED: DOCU100C28 PO (11:53)
[2021-06-13] MEDS ORDERED: ACET325T21 PO (11:53)
--- NOTE | 2021-06-13 11:54 | DISCH ---
DISCHARGE INSTRUCTIONS Condition on Discharge Condition on Discharge: Stable Activity After Discharge Activity Instructions for Disc: Activity as tolerated Driving Instructions after Dis: Do not drive today Diet after Discharge Liquid Texture: Thin Liquid Contacting the DR. after DC Call your doctor for: If your condition worsens Follow-Up Follow up with: SEE PCP THIS WEEK GRETTA JOE MD Jun 13, 2021 11:53
--- NOTE | 2021-06-13 12:01 | NUR ---
SW following. Discussed with RN, pt from home, room air, regular diet. Discharge order for home with self care.
--- NOTE | 2021-06-13 13:05 | NUR ---
Discharge Note: HARRISON ESPANA [address] Discharge instructions and discharge home medications reviewed with Patient and a copy given. All questions have been answered and understanding verbalized. The following instructions and handouts were given: followo up instructions, medication education Discontinued lines and drains: 20 guage right AC, tip intact. patient tolerated well. Patient discharged to home with self care via family.
== END 2021-06-13 12:48 | disposition home or self-care (01) | DRG 389 ==
LOC: ER 03:21 → 5 SOUTH 07:26
PROVIDERS: ADMIT Internal Medicine; ATTEND Internal Medicine
PROC: 0D9670Z Drainage of Stomach with Drainage Device, Via Natural or Artificial Opening (ICD-10-PCS; principal; 2021-06-10)
DX: K56.609 Unspecified intestinal obstruction, unspecified as to partial versus complete obstruction (principal); N39.0 Urinary tract infection, site not specified; E11.9 Type 2 diabetes mellitus without complications; E66.01 Morbid (severe) obesity due to excess calories; E87.6 Hypokalemia; K52.9 Noninfective gastroenteritis and colitis, unspecified; K76.0 Fatty (change of) liver, not elsewhere classified; M19.90 Unspecified osteoarthritis, unspecified site; Z87.891 Personal history of nicotine dependence; Z68.34 Body mass index [BMI] 34.0-34.9, adult; Z20.822 Contact with and (suspected) exposure to COVID-19
CPT/HCPCS: 36415; 74018; 74022; 74177; 80048; 80053; 81001; 81025; 83690; 83735; 84100; 85025; 87077; 87086; 87186; 87426; 93005; 96374; 96375; 96376; J1650; J1956; J2270; J2405; J3480; J7030; Q9967; U0003; U0005; 99285-25; G0378